=== PATIENT | male | born 1935 | race Caucasian/White ===

== ENCOUNTER 2017-10-04 07:30 | Day surgery (SDC) | payer MEDICARE, OTHER ==
--- NOTE | 2017-10-03 14:46 | PCM.PREANE ---
Preanesthetic Assessment - Anesthesia/Transfusion/Family Hx Anesthesia History: Prior Anesthesia Without Reaction Family History of Anesthesia Reaction: No Transfusion History: No Prior Transfusion(s) Intubation History: Unknown - Review of Systems General: No Symptoms Pulmonary: No Symptoms (quit smoking in 2003) Cardiovascular: No Symptoms (History of A-fibrillation/patient states he was told he had a [place] in the past which was silent), Palpitations, Dyspnea on Exertion (climbing stairs), Edema (history of lower extremity), Lightheadedness (with postural changes) Gastrointestinal: No Symptoms (gerd/History of hiatal hernia/ history of goblet cell metaplasia 2007), Constipation, Difficulty Swallowing (occasionally), Vomiting Neurological: Dizziness, Numbness (bilateral legs), Seizure (No CVA but last seizure: greater than 10 years.) Other: Reports: Diabetes (diet controlled), Thyroid Problems (hypothyroid), Sinus Problem (seasonal rhinitis), Neck Pain (occasional), Depression - Physical Assessment NPO Status Date: 10/03/17 NPO Status Time: 19:00 Pulse: 68 O2 Sat by Pulse Oximetry: 96 Respiratory Rate: 16 Blood Pressure: 143/94 Temperature: 36.4 C Height: 1.65 m Weight: 82.1 kg ASA Class: 3 Mental Status: Alert & Oriented x3 Airway Class: Mallampati = 3 Dentition: Reports: Dentures (upper) Thyro-Mental Finger Breadths: 3 Mouth Opening Finger Breadths: 3 ROM/Head Extension: Full Lungs: Clear to Auscultation, Normal Respiratory Effort, Decreased Breath Sounds Cardiovascular: Regular Rate, Regular Rhythm, No Murmurs - Lab Values: All lab values reviewed and noted and within acceptable ranges to proceed with scheduled procedure. - Imaging/EKG Impressions: EKG: SR prolonged ADRIEL, old inferior infarct Echocardiogram: EF 60-65% Negative stress test: 09/28/2017 Carotid doppler: no evidence to suggest significant stenosis - Allergies Allergies/Adverse Reactions: Allergies Allergy/AdvReac Type Severity Reaction Status Date / Time alendronate sodium Allergy Cannot Verified 10/03/17 11:32 [From Fosamax] Remember - Anesthesia Plan Pre-Op Medication Ordered: None - Acknowledgements Anesthesia Type Planned: MAC Pt an Appropriate Candidate for the Planned Anesthesia: Yes Alternatives and Risks of Anesthesia Discussed w Pt/Guardian: Yes Pt/Guardian Understands and Agrees with Anesthesia Plan: Yes PreAnesthesia Questionnaire HEENT History: Reports: Cataract, Impaired Vision, Other (See Below) Other HEENT History: wears glasses, hearing aids, dentures Cardiovascular History: Reports: Afib, Hypertension Respiratory History: Reports: SOB Gastrointestinal History: Reports: Chronic Constipation, GERD, Helicobacter Pylori, Other (See Below) Other Gastrointestinal History: gastric ulcer, upper abdominal pain, dysphagia, esophageal spasm, gastroparesis Genitourinary History: Reports: Other (See Below) Other Genitourinary History: renal mass 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 Musculoskeletal History: Reports: Other (See Below) Other Musculoskeletal History: right arm elbow pain, Neurological History: Reports: Seizure Psychiatric History: Reports: None Endocrine/Metabolic History: Reports: Diabetes, Type II, Hypothyroidism Hematologic History: Reports: None Immunologic History: Reports: None Oncologic (Cancer) History: Reports: None Dermatologic History: Reports: Other (See Below) Other Dermatologic History: onchomycosis - Past Surgical History Head Surgeries/Procedures: Reports: None HEENT Surgical History: Reports: Cataract Surgery, Naso-Sinus Surgery, Tonsillectomy Cardiovascular Surgical History: Reports: None Respiratory Surgical History: Reports: None GI Surgical History: Reports: Colonoscopy, EGD, Hernia Repair/Other Female Surgical History: Reports: None Male Surgical History: Reports: None Endocrine Surgical History: Reports: None Neurological Surgical History: Reports: None Musculoskeletal Surgical History: Reports: Arthroscopic Knee Oncologic Surgical History: Reports: None - SUBSTANCE USE Smoking Status *Q: Former Smoker Recreational Drug Use History: No - HOME MEDS Home Medications: Home Meds Ascorbate Calcium [Vitamin C] 500 mg PO DAILY 10/03/17 [History] Aspirin [Halfprin] 81 mg PO DAILY 10/03/17 [History] Ca Carbonate/Vitamin D3/Vit K [Calcium + D Soft Chewable Tab] 1 tab PO DAILY [History] Gluc/Aj-Msm#2/C/D3/Franky/Born [Sdtmukoiod-Ctxysuccsyl-CVL] 1 tab PO DAILY 10/03 [History] Levothyroxine 25 mcg PO DAILY 10/03/17 [History] Lutein 6 mg PO DAILY 10/03/17 [History] Magnesium 200 mg PO DAILY 10/03/17 [History] Multivitamin [Daily Multiple Vitamin] 1 tab PO DAILY 10/03/17 [History] Oxybutynin 5 mg PO DAILY 10/03/17 [History] Phenytoin Sodium Extended [Dilantin] 100 mg PO QAM 10/03/17 [History] Phenytoin Sodium Extended [Dilantin] 200 mg PO QPM 10/03/17 [History] Tamsulosin HCl 0.4 mg PO DAILY 10/03/17 [History] Ubidecarenone [Coq-10] 100 mg PO DAILY 10/03/17 [History] - CURRENT (IN HOUSE) MEDS Current Meds: Current Medications Lactated Ringer's (Ringers, Lactated) 1,000 mls @ 125 mls/hr IV ASDIRECTED TORY Stop: 10/04/17 23:00 Lidocaine/Sodium Bicarbonate (Buffered Lidocaine 1% In Ns 8.4%) 0.25 ml IDERM ONETIME PRN PRN Reason: Prior to IV Start Stop: 10/04/17 18:00 Sodium Chloride (Saline Flush) 10 ml FLUSH ASDIRECTED PRN PRN Reason: Keep Vein Open Stop: 10/04/17 18:00
[~2017-10-04 07:30] MED LIST: Lactated Ringers 1,000 ML IV SCH; Lidocaine 1% 0 ML ONE; Lidocaine 1%/Sod Bicarbonate in NS 8.4% 1 ML Syringe IDERM PRN; Propofol 200 MG/20 ML SDV ONE; Sodium Chloride 0.9% 10 ML Syringe FLUSH PRN; fentaNYL 100 MCG/2 ML SDV ONE
--- NOTE | 2017-10-04 09:14 | PCM48HPAN ---
Post Anesthesia Note - EVALUATION WITHIN 48HRS OF ANESTHETIC Vital Signs in Normal Range: Yes Patient Participated in Evaluation: Yes Respiratory Function Stable: Yes Airway Patent: Yes Cardiovascular Function Stable: Yes Hydration Status Stable: Yes Pain Control Satisfactory: Yes Nausea and Vomiting Control Satisfactory: Yes Mental Status Recovered: Yes
--- NOTE | 2017-10-04 09:31 | PCM.OPNOTE ---
- General Post-Op/Procedure Note Date of Surgery/Procedure: 10/04/17 Operative Procedure(s): EGD Findings: Hiatal hernia with LA grade A esophagitis,mild atrophic gastritis, otherwise negative EGD Pre Op Diagnosis: GERD and dysphagia Post-Op Diagnosis: Same Anesthesia Technique: JAMI Primary Surgeon: Randal Patel Anesthesia Provider: Melissa Le Complications: None Condition: Good
--- NOTE | 2017-10-04 10:29 | OR ---
DATE OF OPERATION: 10/04/2017 SURGEON: Randal Patel MD OPERATION PERFORMED: Esophagogastroduodenoscopy. ANESTHESIA: MAC. INDICATIONS: This 81-year-old, who has a known hiatal hernia. He has had problems with burning as well as dysphagia. He had 1 biopsy in the past, which showed a focal goblet cell metaplasia. There was no mention of a significant Swann's. He is not taking his medications on a daily basis. Followup EGD is recommended. DESCRIPTION OF PROCEDURE: The patient was brought to the surgical area. MAC anesthesia was given. He understands the risks and benefits of the procedure and is agreeable. Appropriate time-out was instituted. He was turned in the left lateral decubitus position. Scope was advanced easily through the cricopharyngeus and down into the esophagus. The Z-line was at 36 cm. I do not see any significant evidence of Swann's. The diaphragm was at 40 cm. When we initially went through this, there was some bleeding right at the Z-line and I think this is probably just related to some esophagitis. Things were wide open. I saw no evidence of a Schatzki's ring or stricture. Scope was advanced easily down into the stomach. He has mild atrophic gastritis. Scope was advanced through a very normal pylorus. I do not see gastritis. The scope was advanced into the second and third portion of the duodenum, which were normal. I see no ulcers. The scope was brought back into the stomach and on retroflexion, the type 1 sliding hiatal hernia was nicely visualized. The Z-line at 36 cm did show some mild bleeding, but nothing here that needed to be biopsied or dilated. I see no evidence of Swann's. Scope was then removed. Pictures were taken. IMPRESSION: 1. Gastroesophageal reflux disease with 4 cm hiatal hernia and mild esophagitis. 2. Mild atrophic gastritis. He tolerated the procedure very well. PREOPERATIVE DIAGNOSIS: POSTOPERATIVE DIAGNOSIS: ESTIMATED BLOOD LOSS: MMGERONIMO /[id number]
== END 2017-10-04 09:50 | disposition home or self-care (01) ==
LOC: JD.SDS 07:30
PROVIDERS: ATTEND Surgery
DX: K29.40 Chronic atrophic gastritis without bleeding (principal); K21.0 Gastro-esophageal reflux disease with esophagitis; K44.9 Diaphragmatic hernia without obstruction or gangrene; E13.49 Other specified diabetes mellitus with other diabetic neurological complication; E03.4 Atrophy of thyroid (acquired); Z88.8 Allergy status to other drugs, medicaments and biological substances; Z79.82 Long term (current) use of aspirin; Z79.899 Other long term (current) drug therapy; Z87.891 Personal history of nicotine dependence
CPT/HCPCS: 43235; J3010; J7120; J2704

== ENCOUNTER 2017-11-09 07:50 | Day surgery (SDC) | payer MEDICARE, OTHER ==
[~2017-11-09 07:50] MED LIST changes: -Lidocaine 1% 0 ML ONE; -Propofol 200 MG/20 ML SDV ONE; -fentaNYL 100 MCG/2 ML SDV ONE
[2017-11-09] MEDS ORDERED: Propofol 200 MG/20 ML SDV ONE (09:08)
[2017-11-09] MEDS ORDERED: Lidocaine 1% 4 ML ONE (09:08)
[2017-11-09] MEDS ORDERED: fentaNYL 100 MCG/2 ML SDV ONE (09:08)
--- NOTE | 2017-11-09 10:06 | PCM.PREANE ---
Preanesthetic Assessment - Anesthesia/Transfusion/Family Hx Anesthesia History: Prior Anesthesia Without Reaction Family History of Anesthesia Reaction: No Transfusion History: No Prior Transfusion(s) Intubation History: Unknown - Review of Systems General: No Symptoms Pulmonary: No Symptoms Cardiovascular: No Symptoms, Dyspnea on Exertion (When he is walking up more than a flight of steps. No chest pain. Negative stress test earlier this month. ) Gastrointestinal: No Symptoms, Other (GERD/Gastroparesis/Hiatal Hernia) Neurological: Pre-Existing Deficit (Neuropathy feet), Seizure (Has not had a seizure in years. On Dilantin.) Other: Reports: Diabetes, Thyroid Problems - Physical Assessment NPO Status Date: 11/08/17 NPO Status Time: 19:00 O2 Sat by Pulse Oximetry: 95 Respiratory Rate: 20 Vital Signs: Last Vital Signs Temp 36.8 C 11/09/17 08:00 Pulse 65 11/09/17 08:00 Resp 20 11/09/17 08:00 BP 131/71 11/09/17 08:00 Pulse Ox 95 11/09/17 08:00 Height: 1.65 m Weight: 79.832 kg ASA Class: 2 Mental Status: Alert & Oriented x3 Airway Class: Mallampati = 2 Dentition: Reports: Dentures (Upper. Prefers to leave them in for the procedure. ) Thyro-Mental Finger Breadths: 3 Mouth Opening Finger Breadths: 3 ROM/Head Extension: Full Lungs: Clear to Auscultation, Normal Respiratory Effort Cardiovascular: Regular Rate, Regular Rhythm - Lab Values: Laboratory Last Values POC Glucose 102 mg/dL (83-110) 11/09/17 08:24 - Allergies Allergies/Adverse Reactions: Allergies Allergy/AdvReac Type Severity Reaction Status Date / Time alendronate sodium Allergy Rash Verified 11/09/17 08:57 [From Fosamax] - Acknowledgements Anesthesia Type Planned: MAC Pt an Appropriate Candidate for the Planned Anesthesia: Yes Alternatives and Risks of Anesthesia Discussed w Pt/Guardian: Yes Pt/Guardian Understands and Agrees with Anesthesia Plan: Yes PreAnesthesia Questionnaire HEENT History: Reports: Cataract Other HEENT History: wears glasses, hearing aids, dentures Cardiovascular History: Reports: Afib Respiratory History: Reports: SOB Other Respiratory History: Dyspnea on exertion Gastrointestinal History: Reports: Gastritis, GERD, Hemorrhoids, Helicobacter Pylori, Other (See Below) Other Gastrointestinal History: Umbilical hernia, hiatal hernia, esophagitis, dysphagia, esophageal spasm, gastroparesis Genitourinary History: Reports: Other (See Below) Other Genitourinary History: Renal mass 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 Musculoskeletal History: Reports: None Other Musculoskeletal History: right arm elbow pain, Neurological History: Reports: Neuropathy, Peripheral, Seizure Other Neuro History: Dizziness Psychiatric History: Reports: None Endocrine/Metabolic History: Reports: Diabetes, Type II, Hypothyroidism Hematologic History: Reports: None Immunologic History: Reports: None Oncologic (Cancer) History: Reports: Other (See Below) Dermatologic History: Reports: Other (See Below) Other Dermatologic History: Onychomycosis - Infectious Disease History Infectious Disease History: Reports: None - Past Surgical History Head Surgeries/Procedures: Reports: None HEENT Surgical History: Reports: Tonsillectomy Cardiovascular Surgical History: Reports: None Respiratory Surgical History: Reports: None GI Surgical History: Reports: Colonoscopy, EGD Male Surgical History: Reports: None Endocrine Surgical History: Reports: None Neurological Surgical History: Reports: None Musculoskeletal Surgical History: Other Musculoskeletal Surgeries/Procedures:: Left knee arthroscopy Oncologic Surgical History: Reports: None Dermatological Surgical History: Reports: None - SUBSTANCE USE Smoking Status *Q: Former Smoker Tobacco Use Within Last Twelve Months: No Second Hand Smoke Exposure: No Recreational Drug Use History: No - HOME MEDS Home Medications: Home Meds Ascorbate Calcium [Vitamin C] 500 mg PO DAILY 10/03/17 [History] Aspirin [Halfprin] 81 mg PO BEDTIME 10/03/17 [History] Ca Carbonate/Vitamin D3/Vit K [Calcium + D Soft Chewable Tab] 1 tab PO DAILY [History] Gluc/Aj-Msm#2/C/D3/Franky/Born [Icgbxtnoes-Rvztpjlpzkb-VIR] 1 tab PO DAILY 10/03 [History] Levothyroxine 25 mcg PO DAILY 10/03/17 [History] Lutein 6 mg PO DAILY 10/03/17 [History] Magnesium 200 mg PO DAILY 10/03/17 [History] Multivitamin [Daily Multiple Vitamin] 1 tab PO DAILY 10/03/17 [History] Oxybutynin 5 mg PO DAILY 10/03/17 [History] Phenytoin Sodium Extended [Dilantin] 100 mg PO QAM 10/03/17 [History] Phenytoin Sodium Extended [Dilantin] 200 mg PO QPM 10/03/17 [History] Tamsulosin HCl 0.4 mg PO DAILY 10/03/17 [History] Ubidecarenone [Coq-10] 100 mg PO DAILY 10/03/17 [History] Omeprazole Magnesium [Prilosec Otc] 40 mg PO DAILY 11/08/17 [History] Phytonadione [Vitamin K] 100 mcg PO DAILY 11/08/17 [History] - CURRENT (IN HOUSE) MEDS Current Meds: Current Medications Lactated Ringer's (Ringers, Lactated) 1,000 mls @ 125 mls/hr IV ASDIRECTED TORY Last Admin: 11/09/17 08:25 Dose: 125 mls/hr Lidocaine/Sodium Bicarbonate (Buffered Lidocaine 1% In Ns 8.4%) 0.25 ml IDERM ONETIME PRN PRN Reason: Prior to IV Start Last Admin: 11/09/17 08:24 Dose: 0.25 ml Sodium Chloride (Saline Flush) 10 ml FLUSH ASDIRECTED PRN PRN Reason: Keep Vein Open Discontinued Medications Fentanyl (Sublimaze) Confirm Administered Dose 100 mcg .ROUTE .STK-MED ONE Stop: 11/09/17 09:09 Lidocaine HCl (Xylocaine-Mpf 1%) Confirm Administered Dose 4 mls @ as directed .ROUTE .STK-MED ONE Stop: 11/09/17 09:09 Propofol (Diprivan 20 Ml) Confirm Administered Dose 200 mg .ROUTE .STK-MED ONE Stop: 11/09/17 09:09
--- NOTE | 2017-11-09 10:49 | PCM.OPNOTE ---
- General Post-Op/Procedure Note Date of Surgery/Procedure: 11/09/17 Operative Procedure(s): colonoscopy to cecum Pre Op Diagnosis: rectal bleeding Post-Op Diagnosis: Same Anesthesia Technique: MAC Primary Surgeon: Minh Vincent EBL in mLs: 0 Complications: None Condition: Good
--- NOTE | 2017-11-09 10:52 | PCM48HPAN ---
Post Anesthesia Note - EVALUATION WITHIN 48HRS OF ANESTHETIC Vital Signs in Normal Range: Yes Patient Participated in Evaluation: Yes Respiratory Function Stable: Yes Airway Patent: Yes Cardiovascular Function Stable: Yes Hydration Status Stable: Yes Pain Control Satisfactory: Yes Nausea and Vomiting Control Satisfactory: Yes Mental Status Recovered: Yes Pulse Rate: 74 SaO2: 91 Resp Rate: 20 Temperature: 97.5 F (5) Blood Pressure: 124/74
--- NOTE | 2017-11-09 12:07 | OR ---
DATE OF OPERATION: 11/09/2017 SURGEON: Minh Vincent MD PREOPERATIVE DIAGNOSIS: Rectal bleeding. POSTOPERATIVE DIAGNOSIS: Rectal bleeding. OPERATION PERFORMED: Colonoscopy to cecum. FINDINGS: Moderately severe diverticulosis, sigmoid colon. There are no angiodysplasias, neoplasias, large tumor masses, ulcerations, or notable hemorrhoids. ANESTHESIA: Procedure is done under IV sedation. DESCRIPTION OF PROCEDURE: The patient was taken to the endoscopy room, placed in a supine position, connected to monitoring equipment, given IV sedation. The perianal area was evaluated. Did not show any external hemorrhoids. Rectal exam showed good sphincter tone. A video Olympus colonoscope was then introduced into the rectum and threaded up without problem to the cecum, where the appendicular orifice was noted and the ileocecal valve identified. Prep was excellent, [place] Cleansing score grade A throughout the colon. The scope was slowly withdrawn showing the cecum, ascending colon, transverse colon, descending colon, sigmoid colon, and rectum. Retroflexed view was done. The patient tolerated the procedure, sent to recovery room in a stable condition, will be followed up as needed in the clinic. ESTIMATED BLOOD LOSS: MMODAL /[id number]
== END 2017-11-09 11:40 | disposition home or self-care (01) ==
LOC: JD.SDS 07:50
PROVIDERS: ATTEND Surgery
DX: K62.5 Hemorrhage of anus and rectum (principal); K21.9 Gastro-esophageal reflux disease without esophagitis; K57.30 Diverticulosis of large intestine without perforation or abscess without bleeding; K59.00 Constipation, unspecified; K31.84 Gastroparesis; E03.4 Atrophy of thyroid (acquired); E78.1 Pure hyperglyceridemia; E11.51 Type 2 diabetes mellitus with diabetic peripheral angiopathy without gangrene; E11.49 Type 2 diabetes mellitus with other diabetic neurological complication; Z79.82 Long term (current) use of aspirin; Z79.899 Other long term (current) drug therapy; Z98.890 Other specified postprocedural states; Z88.8 Allergy status to other drugs, medicaments and biological substances; Z87.891 Personal history of nicotine dependence
CPT/HCPCS: 45378; 82962; J2001; J3010; J7120; J2704

== ENCOUNTER 2019-11-20 06:56 | Day surgery (SDC) | payer MEDICARE, OTHER ==
--- NOTE | 2019-11-20 07:26 | PCM.PREANE ---
Preanesthetic Assessment - Anesthesia/Transfusion/Family Hx Anesthesia History: Prior Anesthesia Without Reaction Family History of Anesthesia Reaction: No Transfusion History: No Prior Transfusion(s) Intubation History: Unknown - Review of Systems General: No Symptoms Pulmonary: Shortness of Breath (with climbing stairs), Other (malignant neoplasm right lung, ) Cardiovascular: Other (hx of afib) Gastrointestinal: Abdominal Pain, Other (GERD, gastroparesis, states he throws up about once a week) Neurological: Seizure (cant remember last time he had a seizure) Other: Reports: Diabetes (no meds) - Physical Assessment NPO Status Date: 11/19/19 NPO Status Time: 22:00 Weight: 83.007 kg ASA Class: 3 Mental Status: Alert & Oriented x3 Dentition: Reports: Dentures (upper) Thyro-Mental Finger Breadths: 3 Mouth Opening Finger Breadths: 3 ROM/Head Extension: Full Lungs: Clear to Auscultation, Normal Respiratory Effort Cardiovascular: Regular Rate, Regular Rhythm - Lab Values: Laboratory Last Values SARS Virus RNA (PCR) Negative (NEGATIVE) 11/19/19 11:00 - Allergies Allergies/Adverse Reactions: Allergies Allergy/AdvReac Type Severity Reaction Status Date / Time alendronate sodium Allergy Rash Verified 11/09/17 08:57 [From Fosamax] - Blood Blood Available: No Product(s) Available: None - Anesthesia Plan Pre-Op Medication Ordered: None - Acknowledgements Anesthesia Type Planned: MAC Pt an Appropriate Candidate for the Planned Anesthesia: Yes Alternatives and Risks of Anesthesia Discussed w Pt/Guardian: Yes Pt/Guardian Understands and Agrees with Anesthesia Plan: Yes PreAnesthesia Questionnaire HEENT History: Reports: Cataract Other HEENT History: wears glasses, hearing aids, dentures Cardiovascular History: Reports: Afib Respiratory History: Reports: SOB Other Respiratory History: Dyspnea on exertion Gastrointestinal History: Reports: Gastritis, GERD, Hemorrhoids, Helicobacter Pylori, Other (See Below) Other Gastrointestinal History: Umbilical hernia, hiatal hernia, esophagitis, dysphagia, esophageal spasm, gastroparesis Genitourinary History: Reports: Other (See Below) Other Genitourinary History: Renal mass [employer]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 Musculoskeletal History: Reports: None Other Musculoskeletal History: right arm elbow pain, Neurological History: Reports: Neuropathy, Peripheral, Seizure Other Neuro History: Dizziness Psychiatric History: Reports: None Endocrine/Metabolic History: Reports: Diabetes, Type II, Hypothyroidism Hematologic History: Reports: None Immunologic History: Reports: None Oncologic (Cancer) History: Reports: Other (See Below) Dermatologic History: Reports: Other (See Below) Other Dermatologic History: Onychomycosis - Infectious Disease History Infectious Disease History: Reports: None - Past Surgical History Head Surgeries/Procedures: Reports: None HEENT Surgical History: Reports: Tonsillectomy Cardiovascular Surgical History: Reports: None Respiratory Surgical History: Reports: None GI Surgical History: Reports: Colonoscopy, EGD Male Surgical History: Reports: None Endocrine Surgical History: Reports: None Neurological Surgical History: Reports: None Musculoskeletal Surgical History: Other Musculoskeletal Surgeries/Procedures:: Left knee arthroscopy Oncologic Surgical History: Reports: None Dermatological Surgical History: Reports: None - HOME MEDS Home Medications: Home Meds Ascorbate Calcium [Vitamin C] 500 mg PO DAILY 10/03/17 [History] Aspirin [Halfprin] 81 mg PO BEDTIME 10/03/17 [History] Calcium Carb/Vitamin D3/Vit K1 [Calcium + D Soft Chewable Tab] 1 tab PO DAILY [History] Glucosam/Chond-MSM 2/C/D3/Franky [Yprbfxhyuk-Qldnkqgiuoo-DWL] 1 tab PO DAILY 10/03 [History] Levothyroxine 25 mcg PO DAILY 10/03/17 [History] Lutein 6 mg PO DAILY 10/03/17 [History] Magnesium 200 mg PO DAILY 10/03/17 [History] Multivitamin [Daily Multiple Vitamin] 1 tab PO DAILY 10/03/17 [History] Oxybutynin 5 mg PO DAILY 10/03/17 [History] Phenytoin Sodium Extended [Dilantin] 100 mg PO QAM 10/03/17 [History] Phenytoin Sodium Extended [Dilantin] 200 mg PO QPM 10/03/17 [History] Tamsulosin HCl 0.4 mg PO DAILY 10/03/17 [History] Ubidecarenone [Coq-10] 100 mg PO DAILY 10/03/17 [History] Omeprazole Magnesium [Prilosec Otc] 40 mg PO DAILY 11/08/17 [History] Phytonadione [Vitamin K] 100 mcg PO DAILY 11/08/17 [History] - CURRENT (IN HOUSE) MEDS Current Meds: Current Medications Lactated Ringer's (Ringers, Lactated) 1,000 mls @ 125 mls/hr IV ASDIRECTED TORY Stop: 11/20/19 23:00 Lidocaine/Sodium Bicarbonate (Buffered Lidocaine 1% In Ns 8.4%) 0.25 ml IDERM ONETIME PRN PRN Reason: Prior to IV Start Stop: 11/20/19 18:00 Sodium Chloride (Saline Flush) 10 ml FLUSH ASDIRECTED PRN PRN Reason: Keep Vein Open Stop: 11/20/19 18:00
[2019-11-20] MEDS ORDERED: Propofol 200 MG/20 ML SDV ONE (07:38)
--- NOTE | 2019-11-20 08:32 | PCM48HPAN ---
Post Anesthesia Note - EVALUATION WITHIN 48HRS OF ANESTHETIC Vital Signs in Normal Range: Yes Patient Participated in Evaluation: Yes Respiratory Function Stable: Yes Airway Patent: Yes Cardiovascular Function Stable: Yes Hydration Status Stable: Yes Pain Control Satisfactory: Yes Nausea and Vomiting Control Satisfactory: Yes Mental Status Recovered: Yes Vital Signs: Last Vital Signs Temp 36.9 C 11/20/19 07:00 Pulse 77 11/20/19 07:00 Resp 16 11/20/19 07:00 BP 138/68 11/20/19 07:00 Pulse Ox 95 11/20/19 07:00
--- NOTE | 2019-11-20 08:33 | PCM.OPNOTE ---
- General Post-Op/Procedure Note Date of Surgery/Procedure: 11/20/19 Operative Procedure(s): EGD Findings: 1. Tortuous esophagus 2. Sliding hiatal hernia 4cm 3. Schatzki ring- widely patent 4. Gastritis 5. Bile reflux 6. Gastric polypoid tissue 7. Duodenitis Pre Op Diagnosis: Dysphagia, vomiting, heartburn Post-Op Diagnosis: same Anesthesia Technique: MAC Primary Surgeon: Shanelle Moore Anesthesia Provider: Macie Martin Pathology: 1. Duodenal biopsy 2. Antrum biopsy 3. Gastric polyp biopsy Fluid Replacement, Intraop: 700 Output, Urine Amount: 0 EBL in mLs: 0 Complications: none apparent Condition: Good
--- NOTE | 2019-11-20 08:34 | PCM.PRNOTE ---
- Free Text/Narrative Note: Operative Report Date of procedure: November 20, 2019 Preoperative diagnosis: Dysphagia, vomiting, heartburn Postoperative diagnosis: Same Surgeon: Shanelle Moore M.D. Procedure: EGD with biopsy Anesthesia: MAC Event Manager: Macie Martin CRNA IV fluids: 700 mL Estimated blood loss: 0 mL Specimens: 1. Tortuous esophagus 2. Sliding hiatal hernia 4cm 3. Schatzki ring- widely patent 4. Gastritis 5. Bile reflux 6. Gastric polypoid tissue 7. Duodenitis Specimens: 1. Duodenal biopsy 2. Gastric antrum 3. Gastric polyp biopsy Indication: The patient is an 83-year-old gentleman who presented with complaints of heartburn, frequent vomiting and dysphagia. TThe patient was consented for an EGD with possible balloon dilation intervention. Risk of bleeding and perforation were discussed. The patient's consent was obtained Description of the procedure: The patient was taken to the endoscopy suite and placed on hemodynamic monitoring. The nurse field software engineer induced MAC anesthesia. A bite block was placed. The patient was positioned in the left lateral decubitus position. A timeout was performed. The endoscope was gently placed into the mouth to the back of the pharynx and introduced into the esophagus. The scope was gently advanced under direct visualization down to the level of the lower esophageal sphincter. The stomach was then entered. There was bilious fluid pooling in the stomach which was suctioned. Normal rugal folds were noted. The scope was advanced into the antrum. We noted erythematous patches consistent with gastritis versus gastropathy. The stomach mucosa also had the appearance of intestinal metaplasia. The pylorus was then entered and the first and second portion of the duodenum was inspected. We did note some friability and erythema in the duodenal bulb. Biopsies were taken in this area using cold biopsy forceps. There were no ulcerations in the duodenum. The scope was withdrawn into the antrum and biopsies were taken with a cold biopsy forceps for H. pylori testing. The scope was then retroflexed in the cardia and fundus were investigated. A sliding hiatal hernia was noted. The mucosa of the greater curvature near the antrum had a polypoid, frond-like appearance. Biopsies were taken in this area using a cold biopsy forceps. There was also some thinning of the mucosa that looked consistent with healing ulceration. No discrete ulcer was noted no other abnormalities were noted. The scope was then withdrawn while inspecting the esophagus. The Z line was noted at approximately 37 cm. The patient had a 4 cm sliding hiatal hernia measured. There was a Schatzki ring present at the level of the Z line, however , it was widely patent (at least 18 mm). No intervention was performed. There was no esophagitis. The procedure was terminated. the patient tolerated the procedure well without any evidence of complications. Shanelle Moore MD General Surgery
== END 2019-11-20 09:25 | disposition home or self-care (01) ==
LOC: JD.SDS 06:56
PROVIDERS: ATTEND Surgery
DX: K29.50 Unspecified chronic gastritis without bleeding (principal); K31.89 Other diseases of stomach and duodenum; K44.9 Diaphragmatic hernia without obstruction or gangrene; K22.2 Esophageal obstruction; K21.9 Gastro-esophageal reflux disease without esophagitis; K31.7 Polyp of stomach and duodenum; K29.80 Duodenitis without bleeding; Z11.59 Encounter for screening for other viral diseases; E11.9 Type 2 diabetes mellitus without complications; Z87.19 Personal history of other diseases of the digestive system; Z87.891 Personal history of nicotine dependence; Z88.8 Allergy status to other drugs, medicaments and biological substances; Z98.890 Other specified postprocedural states; Z79.899 Other long term (current) drug therapy
CPT/HCPCS: 43239; 82962; J2704; J7120; U0002

== ENCOUNTER 2020-04-20 07:14 | Day surgery (SDC) | payer MEDICARE, OTHER ==
[~2020-04-20 07:14] MED LIST changes: +Scopolamine 1.5 MG Transdermal Patch TRDERM PRN
[2020-04-20] MEDS ORDERED: fentaNYL 250 MCG/5 ML SDV ONE (07:18)
[2020-04-20] MEDS ORDERED: Propofol 200 MG/20 ML SDV ONE (07:18)
[2020-04-20] MEDS ORDERED: Lidocaine 1% 4 ML ONE (07:19)
[2020-04-20] MEDS ORDERED: Rocuronium 50 MG/5 ML Vial ONE (07:21)
[2020-04-20] MEDS ORDERED: Ondansetron 4 MG/2 ML SDV ONE (07:21)
[2020-04-20] MEDS ORDERED: Dexamethasone 4 MG/ML 5 ML MDV ONE (07:21)
[2020-04-20] MEDS ORDERED: Lidocaine 1% with EPINEPHrine 1:100,000 20 ML MDV ONE (07:28)
[2020-04-20] MEDS ORDERED: Scopolamine 1.5 MG Transdermal Patch TOP SCH (07:28)
[2020-04-20] MEDS ORDERED: fentaNYL 100 MCG/2 ML SDV IVPUSH PRN (07:35)
[2020-04-20] MEDS ORDERED: Ondansetron 4 MG/2 ML SDV IVPUSH PRN (07:35)
[2020-04-20] MEDS ORDERED: diphenhydrAMINE 50 MG/ML SDV IVPUSH PRN (07:35)
--- NOTE | 2020-04-20 07:41 | PCM.PREANE ---
Preanesthetic Assessment - Procedure Proposed Procedure: open umbilical hernia repair with mesh - Anesthesia/Transfusion/Family Hx Anesthesia History: Prior Anesthesia Without Reaction Family History of Anesthesia Reaction: No Transfusion History: No Prior Transfusion(s) Intubation History: Unknown - Review of Systems General: No Symptoms Pulmonary: No Symptoms Cardiovascular: No Symptoms Gastrointestinal: Nausea, Vomiting, Other (GERD ) Neurological: Seizure, Tingling (left hand ) - Physical Assessment NPO Status Date: 04/20/20 NPO Status Time: 20:00 Vital Signs: Last Vital Signs Temp 36.6 C 04/20/20 07:25 Pulse 80 04/20/20 07:25 Resp 16 04/20/20 07:25 BP 142/80 H 04/20/20 07:25 Pulse Ox 96 04/20/20 07:25 Height: 1.65 m Weight: 79.832 kg ASA Class: 3 Mental Status: Alert & Oriented x3 Airway Class: Mallampati = 3 Dentition: Reports: Dentures (upper ) Thyro-Mental Finger Breadths: 3 Mouth Opening Finger Breadths: 4 ROM/Head Extension: Limited/Partial Lungs: Clear to Auscultation, Normal Respiratory Effort Cardiovascular: Regular Rate, Regular Rhythm - Lab Values: Laboratory Last Values SARS-CoV-2 RNA ([facility]IS[facility]) Cancelled 03/27/20 15:33 - Allergies Allergies/Adverse Reactions: Allergies Allergy/AdvReac Type Severity Reaction Status Date / Time alendronate sodium Allergy Rash Verified 11/09/17 08:57 [From Fosamax] - Anesthesia Plan Pre-Op Medication Ordered: Antacids - Acknowledgements Anesthesia Type Planned: General Anesthesia Pt an Appropriate Candidate for the Planned Anesthesia: Yes Alternatives and Risks of Anesthesia Discussed w Pt/Guardian: Yes Pt/Guardian Understands and Agrees with Anesthesia Plan: Yes PreAnesthesia Questionnaire HEENT History: Reports: Cataract Other HEENT History: wears glasses, hearing aids, dentures Cardiovascular History: Reports: Afib Respiratory History: Reports: SOB Other Respiratory History: Dyspnea on exertion Gastrointestinal History: Reports: Gastritis, GERD, Hemorrhoids, Helicobacter Pylori, Other (See Below) Other Gastrointestinal History: Umbilical hernia, hiatal hernia, esophagitis, dysphagia, esophageal spasm, gastroparesis Genitourinary History: Reports: Other (See Below) Other Genitourinary History: Renal mass UNDERGROUND REPAIRER History: Reports: None Musculoskeletal History: Reports: None Other Musculoskeletal History: right arm elbow pain, Neurological History: Reports: Neuropathy, Peripheral, Seizure Other Neuro History: Dizziness Psychiatric History: Reports: None Endocrine/Metabolic History: Reports: Diabetes, Type II, Hypothyroidism Hematologic History: Reports: None Immunologic History: Reports: None Oncologic (Cancer) History: Reports: Other (See Below) Dermatologic History: Reports: Other (See Below) Other Dermatologic History: Onychomycosis - Infectious Disease History Infectious Disease History: Reports: None - Past Surgical History Head Surgeries/Procedures: Reports: None HEENT Surgical History: Reports: Tonsillectomy Cardiovascular Surgical History: Reports: None Respiratory Surgical History: Reports: None Other Respiratory Surgeries/Procedures: 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 in [place] GI Surgical History: Reports: Colonoscopy, EGD Male Surgical History: Reports: None Endocrine Surgical History: Reports: None Neurological Surgical History: Reports: None Musculoskeletal Surgical History: Other Musculoskeletal Surgeries/Procedures:: Left knee arthroscopy Oncologic Surgical History: Reports: None Dermatological Surgical History: Reports: None - HOME MEDS Home Medications: Home Meds Ascorbate Calcium [Vitamin C] 500 mg PO DAILY 10/03/17 [History] Aspirin [Halfprin] 81 mg PO BEDTIME 10/03/17 [History] Calcium Carb/Vitamin D3/Vit K1 [Calcium + D Soft Chewable Tab] 1 tab PO DAILY 10/03/17 [History] Glucosam/Chond-MSM 2/C/D3/Franky [Paqqgyszec-Mgryoozhxrn-KMF] 1 tab PO DAILY 10/03/17 [History] Levothyroxine 25 mcg PO DAILY 10/03/17 [History] Lutein 6 mg PO DAILY 10/03/17 [History] Magnesium 200 mg PO DAILY 10/03/17 [History] Multivitamin [Daily Multiple Vitamin] 1 tab PO DAILY 10/03/17 [History] Oxybutynin 5 mg PO DAILY 10/03/17 [History] Phenytoin Sodium Extended [Dilantin] 200 mg PO QPM 10/03/17 [History] Tamsulosin HCl 0.4 mg PO DAILY 10/03/17 [History] Ubidecarenone [Coq-10] 100 mg PO DAILY 10/03/17 [History] Pantoprazole Sodium [Protonix] 40 mg PO DAILY #30 tablet. 11/20/19 [Rx] - CURRENT (IN HOUSE) MEDS Current Meds: Current Medications Lactated Ringer's (Ringers, Lactated) 1,000 mls @ 125 mls/hr IV ASDIRECTED TORY Stop: 04/20/20 23:00 Lidocaine/Sodium Bicarbonate (Buffered Lidocaine 1% In Ns 8.4%) 0.25 ml IDERM ONETIME PRN PRN Reason: Prior to IV Start Stop: 04/20/20 18:00 Scopolamine (Transderm-Scop) 1.5 mg TOP ONETIME TORY Stop: 04/20/20 12:00 Sodium Chloride (Saline Flush) 10 ml FLUSH ASDIRECTED PRN PRN Reason: Keep Vein Open Stop: 04/20/20 18:00 Discontinued Medications Dexamethasone (Dexamethasone) Confirm Administered Dose 20 mg .ROUTE .STK-MED ONE Stop: 04/20/20 07:22 Fentanyl (Sublimaze) Confirm Administered Dose 250 mcg .ROUTE .STK-MED ONE Stop: 04/20/20 07:19 Lactated Ringer's (Ringers, Lactated) 1,000 mls @ 125 mls/hr IV ASDIRECTED [facility] Stop: 03/30/20 23:00 Lidocaine HCl (Xylocaine-Mpf 1%) Confirm Administered Dose 4 mls @ as directed .ROUTE .STK-MED ONE Stop: 04/20/20 07:20 Lidocaine/Epinephrine (Xylocaine 1% With Epinephrine 1:100,000) Confirm Administered Dose 20 ml .ROUTE .STK-MED ONE Stop: 04/20/20 07:29 Lidocaine/Sodium Bicarbonate (Buffered Lidocaine 1% In Ns 8.4%) 0.25 ml IDERM ONETIME PRN PRN Reason: Prior to IV Start Stop: 03/30/20 18:00 Ondansetron HCl (Zofran) Confirm Administered Dose 4 mg .ROUTE .STK-MED ONE Stop: 04/20/20 07:22 Propofol (Diprivan 20 Ml) Confirm Administered Dose 200 mg .ROUTE .STK-MED ONE Stop: 04/20/20 07:19 Rocuronium [place] (Zemuron) Confirm Administered Dose 50 mg .ROUTE .STK-MED ONE Stop: 04/20/20 07:22 Scopolamine (Transderm-Scop) 1.5 mg TRDERM ONETIME PRN PRN Reason: PONV Stop: 03/30/20 18:00 Sodium Chloride (Saline Flush) 10 ml FLUSH ASDIRECTED PRN PRN Reason: Keep Vein Open Stop: 03/30/20 18:00
[2020-04-20] MEDS ORDERED: Citric Acid/Sodium Citrate Solution 30 ML Cup PO ONE (07:46)
[2020-04-20] MEDS ORDERED: Citric Acid/Sodium Citrate Solution 30 ML Cup ONE (08:02)
[2020-04-20] MEDS ORDERED: ceFAZolin 1 GM Vial ONE (08:39)
[2020-04-20] MEDS ORDERED: ePHEDrine 50 MG/ML SDV ONE (08:50)
[2020-04-20] MEDS ORDERED: Lactated Ringers 1,000 ML ONE (09:17)
[2020-04-20] MEDS ORDERED: Ketorolac 30 MG/ML SDV ONE (09:17)
--- NOTE | 2020-04-20 09:48 | PCM.POSTAN ---
POST ANESTHESIA ASSESSMENT - MENTAL STATUS Mental Status: Other (drowsy ) - VITAL SIGNS Vital Signs: Last Vital Signs Temp 36.6 C 04/20/20 07:25 Pulse 80 04/20/20 07:25 Resp 16 04/20/20 07:25 BP 142/80 H 04/20/20 07:25 Pulse Ox 96 04/20/20 07:25 - RESPIRATORY Respiratory Status: Respiratory Rate WNL, Airway Patent, O2 Saturation Stable - CARDIOVASCULAR CV Status: Blood Pressure Stable, Elevated Pulse Rate (from reversal ) - GASTROINTESTINAL GI Status: No Symptoms - PAIN Pain Score: 0 - POST OP HYDRATION Hydration Status: Adequate & Stable
--- NOTE | 2020-04-20 10:38 | OR ---
DATE OF OPERATION: 04/20/2020 SURGEON: Marcos Clayton MD PREOPERATIVE DIAGNOSIS: Symptomatic umbilical hernia. POSTOPERATIVE DIAGNOSIS: Symptomatic umbilical hernia. OPERATION PERFORMED: Open umbilical hernia repair without mesh. ESTIMATED BLOOD LOSS: 5 mL. ANESTHESIA: General endotracheal and local. Local anesthesia used was 1% lidocaine without epinephrine. COMPLICATIONS: None. INDICATION AND CONSENT: Mr. Ellis is an 84-year-old male who had umbilical hernia for many years. However, in the recent months, he has become more painful, especially with activities and therefore the patient presented to my clinic. I evaluated the patient and recommended operative repair. Discussed risks, benefits, and alternatives and all questions were answered. Informed consent was obtained. DESCRIPTION OF PROCEDURE: The patient was met in the preop area and he was doing fine. He was taken to the operating room. Preop antibiotics were given. The patient was padded appropriately and general anesthesia was induced and then the abdomen was exposed, hair clipped, prepped and draped in the usual sterile fashion. Formal time-out was performed prior to the start of the procedure. Began the procedure by injecting local anesthetic in the subcutaneous tissues. A supraumbilical incision just above the hernia was made with a #10 blade. The hernia was isolated from surrounding subcutaneous tissues all the way circumferentially. The hernia sac contained preperitoneal fat. However, there was omentum also that was easily bulging into the hernia. Once the hernia sac was isolated, it was released from the fascial edges and amputated. The hernia contents were placed back into the abdominal cavity. The surrounding preperitoneal fat was released from fascial edges and then the fascia was measured and found to be 1.2 cm in diameter. Because of the small size of the fascial defect, decision was made to close this primarily and avoid putting a mesh in the small hernia. #1 PDS was used to close the fascia in 2 ways, one was a mattress suture and then this was also buttressed by [id number] sutures. At the end, the hernia was well approximated. The umbilical button was recreated with 3-0 Vicryl stitch and then the skin was closed in layers, deeper layers were closed with 3-0 Vicryl and subcuticular stitches was reapproximated with 4-0 Monocryl and then Dermabond was applied. This marked the end of the procedure. At the end of the procedure, all instruments, sharps, and sponges were counted and found to be correct x2. The patient was awoken from general anesthesia, extubated, and taken to the PACU for further recovery. The patient will be allowed to go home today. The patient is to use over-the- counter NSAIDs for pain. If the pain is too much, then the patient will call for opioid prescriptions. CHRISTI /[id number]
--- NOTE | 2020-04-20 12:13 | PCM48HPAN ---
Post Anesthesia Note - EVALUATION WITHIN 48HRS OF ANESTHETIC Vital Signs in Normal Range: Yes Patient Participated in Evaluation: Yes Respiratory Function Stable: Yes Airway Patent: Yes Cardiovascular Function Stable: Yes Hydration Status Stable: Yes Pain Control Satisfactory: Yes Nausea and Vomiting Control Satisfactory: Yes Mental Status Recovered: Yes Vital Signs: Last Vital Signs Temp 36.9 C 04/20/20 09:39 Pulse 86 04/20/20 11:30 Resp 16 04/20/20 11:30 BP 116/67 04/20/20 11:30 Pulse Ox 96 04/20/20 11:30
== END 2020-04-20 12:40 | disposition home or self-care (01) ==
LOC: JD.SDS 07:14
PROVIDERS: ATTEND Surgery
DX: K42.9 Umbilical hernia without obstruction or gangrene (principal); E11.51 Type 2 diabetes mellitus with diabetic peripheral angiopathy without gangrene; I48.91 Unspecified atrial fibrillation; E11.49 Type 2 diabetes mellitus with other diabetic neurological complication; F17.210 Nicotine dependence, cigarettes, uncomplicated; E03.9 Hypothyroidism, unspecified; Z98.890 Other specified postprocedural states; Z79.899 Other long term (current) drug therapy; Z88.8 Allergy status to other drugs, medicaments and biological substances; Z79.890 Hormone replacement therapy
CPT/HCPCS: 49585; A9270; J0690; J1100; J1885; J2001; J2405; J2704; J2710; J3010; J7120; 00750; U0002

== ENCOUNTER 2021-04-08 16:13 | Inpatient (IN) | payer MEDICARE, OTHER ==
[2021-04-08] MEDS ORDERED: Sodium Chloride 0.9% 1,000 ML IV STA (17:19)
[2021-04-08] MEDS ORDERED: Pantoprazole 40 MG Vial IVPUSH ONE (17:19)
[2021-04-08] MEDS ORDERED: Ondansetron 4 MG/2 ML SDV IVPUSH ONE (17:19)
--- NOTE | 2021-04-08 17:40 | EDM.PDOC ---
ED HPI GENERAL MEDICAL PROBLEM - General Chief Complaint: Gastrointestinal Problem Stated Complaint: VOMITING BLOOD Time Seen by Provider: 04/08/21 17:01 Source of Information: Reports: Patient, RN Notes Reviewed History Limitations: Reports: No Limitations - History of Present Illness INITIAL COMMENTS - FREE TEXT/NARRATIVE: Patient is an 85-year-old male presenting to the emergency department with complaints of epigastric pain as well as hematemesis. He reports he ate dinner around 1 PM. Shortly after eating, he vomited up his dinner and immediately thereafter approximately 1 cup of donna red blood. He has had no further vomiting since that time. Continues to have some epigastric discomfort. He was on Protonix, however he stopped it 1 year ago as he did not feel it was doing anything. Denies any NSAID or alcohol use. He does take aspirin 81 mg each evening. Denies any chest pain or shortness of breath. He has no history of GI bleeds. Denies any recent dark stools. He had EGD completed in 2018 which showed hiatal hernia, GERD and gastritis. Primary care provider is Dr. Riley. Middle Epigastric Pain Score (Numeric/FACES): 8 - Related Data Allergies Allergy/AdvReac Type Severity Reaction Status Date / Time alendronate sodium Allergy Rash Verified 11/09/17 08:57 [From Fosamax] Home Meds: Home Meds Ascorbate Calcium [Vitamin C] 500 mg PO DAILY 10/03/17 [History] Aspirin [Halfprin] 81 mg PO BEDTIME 10/03/17 [History] Calcium Carb/Vitamin D3/Vit K1 [Calcium + D Soft Chewable Tab] 1 tab PO DAILY 10/03/17 [History] Glucosam/Chond-MSM 2/C/D3/Franky [Vlerjpctqk-Phsapnqkvdt-TGY] 1 tab PO DAILY 10/03/17 [History] Levothyroxine 25 mcg PO DAILY 10/03/17 [History] Lutein 6 mg PO DAILY 10/03/17 [History] Magnesium 200 mg PO DAILY 10/03/17 [History] Multivitamin [Daily Multiple Vitamin] 1 tab PO DAILY 10/03/17 [History] Oxybutynin 5 mg PO DAILY 10/03/17 [History] Phenytoin Sodium Extended [Dilantin] 200 mg PO QPM 10/03/17 [History] Tamsulosin HCl 0.4 mg PO DAILY 10/03/17 [History] Ubidecarenone [Coq-10] 100 mg PO DAILY 10/03/17 [History] Past Medical History HEENT History: Reports: Cataract Other HEENT History: wears glasses, hearing aids, dentures Cardiovascular History: Reports: Afib Respiratory History: Reports: SOB Other Respiratory History: Dyspnea on exertion Gastrointestinal History: Reports: Gastritis, GERD, Hemorrhoids, Helicobacter Pylori, Other (See Below) Other Gastrointestinal History: Umbilical hernia, hiatal hernia, esophagitis, dysphagia, esophageal spasm, gastroparesis Genitourinary History: Reports: Other (See Below) Other Genitourinary History: Renal mass [employer] History: Reports: None Musculoskeletal History: Reports: None Other Musculoskeletal History: right arm elbow pain, Neurological History: Reports: Neuropathy, Peripheral, Seizure Other Neuro History: Dizziness Psychiatric History: Reports: None Endocrine/Metabolic History: Reports: Diabetes, Type II, Hypothyroidism Hematologic History: Reports: None Immunologic History: Reports: None Oncologic (Cancer) History: Reports: Other (See Below) Dermatologic History: Reports: Other (See Below) Other Dermatologic History: Onychomycosis - Infectious Disease History Infectious Disease History: Reports: None - Past Surgical History Head Surgeries/Procedures: Reports: None HEENT Surgical History: Reports: Tonsillectomy Cardiovascular Surgical History: Reports: None Respiratory Surgical History: Reports: None Other Respiratory Surgeries/Procedures: 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 [place] [facility] Surgical History: Reports: Colonoscopy, EGD Male Surgical History: Reports: None Endocrine Surgical History: Reports: None Neurological Surgical History: Reports: None Other Musculoskeletal Surgeries/Procedures:: Left knee arthroscopy Oncologic Surgical History: Reports: None Dermatological Surgical History: Reports: None Social & Family History - Tobacco Use Tobacco Use Status *Q: Former Tobacco User Used Tobacco, but Quit: Yes Month/Year Tobacco Last Used: 1961 - Caffeine Use Caffeine Use: Reports: None - Recreational Drug Use Recreational Drug Use: No ED ROS GENERAL - Review of Systems Review Of Systems: See Below Constitutional: Reports: No Symptoms. Denies: Fever, Chills HEENT: Reports: No Symptoms Respiratory: Reports: No Symptoms. Denies: Shortness of Breath Cardiovascular: Reports: No Symptoms. Denies: Chest Pain, Lightheadedness GI/Abdominal: Reports: Abdominal Pain (Epigastric), Hematemesis, Vomiting. Denies: Black Stool, Diarrhea : Reports: No Symptoms Musculoskeletal: Reports: No Symptoms Skin: Reports: No Symptoms Neurological: Reports: No Symptoms. Denies: Dizziness Psychiatric: Reports: No Symptoms Hematologic/Lymphatic: Reports: No Symptoms Immunologic: Reports: No Symptoms ED EXAM, GI/ABD - Physical Exam Exam: See Below Exam Limited By: No Limitations General Appearance: Alert, WD/WN, No Apparent Distress Respiratory/Chest: No Respiratory Distress, Lungs Clear, Normal Breath Sounds, No Accessory Muscle Use, Chest Non-Tender Cardiovascular: Normal Peripheral Pulses, Regular Rate, Rhythm, No Edema, No Gallop, No JVD, No Murmur, No Rub GI/Abdominal Exam: Normal Bowel Sounds, Soft, No Organomegaly, No Distention, No Abnormal Bruit, No Mass, Pelvis Stable, Tender (Epigastric) Neurological: Alert, Oriented, CN II-XII Intact, Normal Cognition, Normal Gait, Normal Reflexes, No Motor/Sensory Deficits Psychiatric: Normal Affect, Normal Mood Skin Exam: Warm, Dry, Intact, Normal Color, No Rash Course - Vital Signs Last Recorded V/S: Last Vital Signs Temp 97.9 F 04/08/21 16:57 Pulse 97 04/08/21 16:57 Resp 16 04/08/21 16:57 BP 169/88 H 04/08/21 16:57 Pulse Ox 97 04/08/21 16:57 - Orders/Labs/Meds Orders: Active Orders 24 hr Category Date Time Status Admission Status [Patient Status] [ADT] Routine ADT 04/08/21 21:50 Active Peripheral IV Care [RC] . DIRECTED Care 04/08/21 17:07 Active NPO Now [Nothing per Oral Now Diet] [DIET] Diet 04/09/21 Breakfast Active Sodium Chloride 0.9% [Normal Saline] 1,000 ml Med 04/08/21 17:19 Active IV NOW Sodium Chloride 0.9% [Saline Flush] Med 04/08/21 17:07 Active 10 ml FLUSH ASDIRECTED PRN Peripheral IV Insertion Adult [OM.PC] Stat Oth 04/08/21 17:06 Ordered Schedule Procedure [COMM] Routine Oth 04/08/21 20:43 Ordered Schedule Procedure [COMM] Stat Oth 04/08/21 21:52 Ordered Medication Orders Sodium Chloride (Normal Saline) 1,000 mls @ 150 mls/hr IV NOW STA Stop: 04/08/21 23:58 Last Admin: 04/08/21 18:01 Dose: 150 mls/hr Documented by: TRAVIS Sodium Chloride (Sodium Chloride 0.9% 10 Ml Syringe) 10 ml FLUSH ASDIRECTED PRN PRN Reason: Keep Vein Open Last Admin: 04/08/21 18:37 Dose: 10 ml Documented by: [id number] Admin: 04/08/21 18:00 Dose: 10 ml Documented by: TRAVIS Labs: Laboratory Tests 04/08/21 04/08/21 04/08/21 Range/Units 17:25 17:25 17:25 WBC 17.51 H (4.23-9.07) K/mm3 RBC 4.68 (4.63-6.08) M/mm3 Hgb 14.8 (13.7-17.5) gm/dl Hct 44.9 (40.1-51.0) % MCV 95.9 H (79.0-92.2) fl MCH 31.6 (25.7-32.2) pg MCHC 33.0 (32.2-35.5) g/dl RDW Std Deviation 45.5 H (35.1-43.9) fL Plt Count 268 (163-337) K/mm3 MPV 8.8 L (9.4-12.3) fl Neut % (Auto) 82.0 H (34.0-67.9) % Lymph % (Auto) 8.2 L (21.8-53.1) % Benzie % (Auto) 9.1 (5.3-12.2) % Eos % (Auto) 0.2 L (0.8-7.0) Baso % (Auto) 0.2 (0.1-1.2) % Neut # (Auto) 14.38 H (1.78-5.38) K/mm3 Lymph # (Auto) 1.43 (1.32-3.57) K/mm3 Benzie # (Auto) 1.59 H (0.30-0.82) K/mm3 Eos # (Auto) 0.03 L (0.04-0.54) K/mm3 Baso # (Auto) 0.03 (0.01-0.08) K/mm3 Manual Slide Review PT 11.4 (9.7-12.0) SECONDS INR 1.03 APTT 25.6 (21.7-31.4) SECONDS Sodium 141 (136-145) mEq/L Potassium 4.8 (3.5-5.1) mEq/L Chloride 104 (98-107) mEq/L Carbon Dioxide 31 (21-32) mEq/L Anion Gap 10.8 (5-15) BUN 16 (7-18) mg/dL Creatinine 0.9 (0.7-1.3) mg/dL Est Cr Clr Drug Dosing 54.15 mL/min Estimated GFR (MDRD) > 60 (>60) mL/min BUN/Creatinine Ratio 17.8 (14-18) Glucose 112 H (70-99) mg/dL Calcium 9.4 (8.5-10.1) mg/dL Total Bilirubin 0.3 (0.2-1.0) mg/dL AST 16 (15-37) U/L ALT 23 (16-63) U/L Alkaline Phosphatase 163 H (46-116) U/L C-Reactive Protein (<1.0) mg/dL Total Protein 6.9 (6.4-8.2) g/dl Albumin 3.9 (3.4-5.0) g/dl Globulin 3.0 gm/dL Albumin/Globulin Ratio 1.3 (1-2) Urine Color (Yellow) Urine Appearance (Clear) Urine pH (5.0-8.0) Ur Specific [place] (1.005-1.030) Urine Protein (Negative) Urine Glucose (UA) (Negative) Urine Ketones (Negative) Urine Occult Blood (Negative) Urine Nitrite (Negative) Urine Bilirubin (Negative) Urine Urobilinogen (0.2-1.0) Ur Leukocyte Esterase (Negative) Urine RBC (0-5) /hpf Urine WBC (0-5) /hpf Ur Squamous Epith Cells (0-5) /hpf Urine Bacteria (FEW) /hpf Urine Mucus (FEW) /hpf SARS-CoV-2 RNA (MARISOL) (NEGATIVE) 04/08/21 04/08/21 04/08/21 Range/Units 17:25 18:49 20:50 WBC (4.23-9.07) K/mm3 RBC (4.63-6.08) M/mm3 Hgb (13.7-17.5) gm/dl Hct (40.1-51.0) % MCV (79.0-92.2) fl MCH (25.7-32.2) pg MCHC (32.2-35.5) g/dl RDW Std Deviation (35.1-43.9) fL Plt Count (163-337) K/mm3 MPV (9.4-12.3) fl Neut % (Auto) (34.0-67.9) % Lymph % (Auto) (21.8-53.1) % Benzie % (Auto) (5.3-12.2) % Eos % (Auto) (0.8-7.0) Baso % (Auto) (0.1-1.2) % Neut # (Auto) (1.78-5.38) K/mm3 Lymph # (Auto) (1.32-3.57) K/mm3 Benzie # (Auto) (0.30-0.82) K/mm3 Eos # (Auto) (0.04-0.54) K/mm3 Baso # (Auto) (0.01-0.08) K/mm3 Manual Slide Review PT (9.7-12.0) SECONDS INR APTT (21.7-31.4) SECONDS Sodium (136-145) mEq/L Potassium (3.5-5.1) mEq/L Chloride (98-107) mEq/L Carbon Dioxide (21-32) mEq/L Anion Gap (5-15) BUN (7-18) mg/dL Creatinine (0.7-1.3) mg/dL Est Cr Clr Drug Dosing mL/min Estimated GFR (MDRD) (>60) mL/min BUN/Creatinine Ratio (14-18) Glucose (70-99) mg/dL Calcium (8.5-10.1) mg/dL Total Bilirubin (0.2-1.0) mg/dL AST (15-37) U/L ALT (16-63) U/L Alkaline Phosphatase (46-116) U/L C-Reactive Protein 0.6 (<1.0) mg/dL Total Protein (6.4-8.2) g/dl Albumin (3.4-5.0) g/dl Globulin gm/dL Albumin/Globulin Ratio (1-2) Urine Color Yellow (Yellow) Urine Appearance Clear (Clear) Urine pH 7.0 (5.0-8.0) Ur Specific [place] 1.020 (1.005-1.030) Urine Protein Negative (Negative) Urine Glucose (UA) Negative (Negative) Urine Ketones Negative (Negative) Urine Occult Blood Negative (Negative) Urine Nitrite Negative (Negative) Urine Bilirubin Negative (Negative) Urine Urobilinogen 0.2 (0.2-1.0) Ur Leukocyte Esterase Negative (Negative) Urine RBC 0-5 (0-5) /hpf Urine WBC 0-5 (0-5) /hpf Ur Squamous Epith Cells Not seen (0-5) /hpf Urine Bacteria Occasional (FEW) /hpf Urine Mucus Not seen (FEW) /hpf SARS-CoV-2 RNA (MARISOL) Negative (NEGATIVE) Meds: Medications Generic Name Dose Route Start Last Admin Trade Name Freronit PRN Reason Stop Dose Admin Sodium Chloride 1,000 mls @ 150 mls/hr 04/08/21 17:19 04/08/21 18:01 Normal Saline IV 04/08/21 23:58 150 mls/hr NOW STA Administration Sodium Chloride 10 ml 04/08/21 17:07 04/08/21 18:37 Sodium Chloride 0.9% 10 Ml Syringe FLUSH 10 ml ASDIRECTED PRN Administration Keep Vein Open Discontinued Medications Generic Name Dose Route Start Last Admin Trade Name Freronit PRN Reason Stop Dose Admin Bupivacaine HCl Confirm 04/08/21 21:19 Bupivacaine 0.5% 30 Ml Sdv Administered 04/08/21 21:20 Dose 30 ml .ROUTE .STK-MED ONE Cefazolin Sodium Confirm 04/08/21 21:16 Cefazolin 1 Gm Vial Administered 04/08/21 21:17 Dose 2 gm .ROUTE .STK-MED ONE Dexamethasone Confirm 04/08/21 21:16 Dexamethasone 4 Mg/Ml 5 Ml Mdv Administered 04/08/21 21:17 Dose 20 mg .ROUTE .STK-MED ONE Fentanyl Confirm 04/08/21 21:16 Fentanyl 250 Mcg/5 Ml Sdv Administered 04/08/21 21:17 Dose 250 mcg .ROUTE .STK-MED ONE Cefazolin Sodium 2 gm/ Sodium 100 mls @ 100 mls/hr 04/08/21 20:50 Chloride IV 04/08/21 21:49 ONETIME ONE Cefazolin Sodium/Dextrose 50 mls @ 100 mls/hr 04/08/21 21:00 04/08/21 21:20 Ancef 2 Gm/50 Ml IV 04/08/21 21:29 100 mls/hr ONETIME ONE Administration Lactated Ringer's Confirm 04/08/21 22:22 Ringers, Lactated Administered 04/08/21 22:23 Dose 1,000 mls @ as directed .ROUTE .STK-MED ONE Iopamidol 100 ml 04/08/21 18:23 04/08/21 18:37 Iopamidol 612 Mg/Ml 100 Ml Bottle IVPUSH 04/08/21 18:24 100 ml ONETIME ONE Administration Lidocaine HCl Confirm 04/08/21 21:16 Lidocaine 1% 5 Ml Sdv Administered 04/08/21 21:17 Dose 5 ml .ROUTE .STK-MED ONE Midazolam HCl Confirm 04/08/21 21:16 Midazolam 1 Mg/Ml 2 Ml Sdv Administered 04/08/21 21:17 Dose 2 mg .ROUTE .STK-MED ONE Miscellaneous Medication Confirm 04/08/21 22:13 Phenylephrine Hcl In 0.9% Nacl 1 Mg/10 Ml Syringe Administered 04/08/21 22:14 Dose 1 mg .ROUTE .STK-MED ONE Ondansetron HCl 4 mg 04/08/21 17:19 04/08/21 18:00 Ondansetron 4 Mg/2 Ml Sdv IVPUSH 04/08/21 17:20 4 mg ONETIME ONE Administration Ondansetron HCl Confirm 04/08/21 21:16 Ondansetron 4 Mg/2 Ml Sdv Administered 04/08/21 21:17 Dose 4 mg .ROUTE .STK-MED ONE Pantoprazole Sodium 80 mg 04/08/21 17:19 04/08/21 17:56 Pantoprazole 40 Mg Vial IVPUSH 04/08/21 17:20 80 mg BOLUS ONE Administration Propofol Confirm 04/08/21 21:16 Propofol 200 Mg/20 Ml Sdv Administered 04/08/21 21:17 Dose 200 mg .ROUTE .STK-MED ONE Rocuronium Mather Confirm 04/08/21 21:16 Rocuronium 50 Mg/5 Ml Vial Administered 04/08/21 21:17 Dose 50 mg .ROUTE .STK-MED ONE Rocuronium Mather Confirm 04/08/21 22:21 Rocuronium 50 Mg/5 Ml Vial Administered 04/08/21 22:22 Dose 50 mg .ROUTE .[facility] ONE - Re-Assessments/Exams Free Text/Narrative Re-Assessment/Exam: Patient is an 85-year-old male presenting to the emergency department with complaints of sudden onset of epigastric pain which radiates into his lower chest as well as mid emesis. Patient reports that around 1 PM he ate lunch. Sure thereafter he experienced intense epigastric discomfort and vomited up his lunch. He then subsequently vomited up around a cup of blood. He has had no further vomiting since that time but continues to have epigastric discomfort radiates up into his lower chest. It is worse with swallowing. On exam, he is tender to palpation in the epigastrium. I have ordered blood work, urinalysis, Covid, chest x-ray, and an abdomen flat and upright x-ray. Infusion of normal saline, Zofran, and Protonix 80 mg IV. 04/08/211821 Abdomen x-ray shows air-fluid levels in the right lower quadrant but no other abnormalities. There is no evidence of free air under the diaphragm. Chest x- ray somewhat concerning for possible widened mediastinum. Based on this, I am going to order a CT scan of the chest abdomen pelvis with IV contrast to visualize the esophagus and stomach. 04/08/21 21:01 CT scan of the chest pression as follows: 1. Findings described above most likely chronic. 2. Solid nodule within the right lobe of the thyroid gland. Thyroid ultrasound could be obtained to further evaluate. 3. Nothing acute is seen on CT of the chest. CT scan of the abdomen impression as follows: 1. Large hiatal hernia 2. Other findings as described above. 3. Nothing acute appreciated on CT of the abdomen pelvis. Case was discussed with general surgeon on-call, Dr. Watson. He did come in to evaluate the patient and would like to take the patient to surgery to repair his hiatal hernia. Patient is in agreement with this. Departure - Departure Time of Disposition: 21:01 Disposition: DC/Tfer to [facility] Condition: Good Clinical Impression: Upper GI bleed Abdominal pain Qualifiers: Abdominal location: upper abdomen, unspecified Qualified Code(s): R10.10 - Upper abdominal pain, unspecified - Discharge Information Sepsis Event Note (ED) - Evaluation Sepsis Screening Result: No Definite Risk - Focused Exam Vital Signs: Vital Signs Temp Pulse Resp BP Pulse Ox 04/08/21 16:57 97.9 F 97 16 169/88 H 97 - My Orders Last 24 Hours: My Active Orders 04/08/21 17:06 Peripheral IV Insertion Adult [OM.PC] Stat 04/08/21 17:07 Peripheral IV Care [RC] . DIRECTED Sodium Chloride 0.9% [Saline Flush] 10 ml FLUSH ASDIRECTED PRN 04/08/21 17:19 Sodium Chloride 0.9% [Normal Saline] 1,000 ml IV NOW 04/08/21 21:50 Admission Status [Patient Status] [ADT] Routine 04/08/21 21:52 Schedule Procedure [COMM] Stat - Assessment/Plan Last 24 Hours: My Active Orders 04/08/21 17:06 Peripheral IV Insertion Adult [OM.PC] Stat 04/08/21 17:07 Peripheral IV Care [RC] . DIRECTED Sodium Chloride 0.9% [Saline Flush] 10 ml FLUSH ASDIRECTED PRN 04/08/21 17:19 Sodium Chloride 0.9% [Normal Saline] 1,000 ml IV NOW 04/08/21 21:50 Admission Status [Patient Status] [ADT] Routine 04/08/21 21:52 Schedule Procedure [COMM] Stat
[2021-04-08] MEDS: Sodium Chloride 0.9% 10 ML Syringe FLUSH PRN ×2 (18:00→18:37)
[2021-04-08] MEDS ORDERED: Iopamidol 612 MG/ML 100 ML Bottle IVPUSH ONE (18:23)
--- NOTE | 2021-04-08 18:45 | CR ---
Chest: 2 views of the chest were obtained. Comparison: No prior chest imaging is available. Hiatal hernia is noted. Surgical clips are seen within the right chest. Triangular density is seen adjacent to the right heart as well as density within the right upper lung. These findings are most likely due to chronic change secondary to prior surgery. Left lung is clear. Bony structures show old right-sided rib fractures which appear healed. Previous rib resection is also noted. Impression: 1. Findings within the right chest most likely postoperative. 2. Hiatal hernia. 3. Nothing acute is definitely appreciated. Diagnostic code #2
--- NOTE | 2021-04-08 18:45 | CR ---
Abdomen: Supine and upright views of the abdomen were obtained. Comparison: No prior abdominal x-ray, previous CT abdomen and pelvis study of 08/07/13. Mild increased gas is noted within colon and small bowel. There is no definite findings of small bowel or colonic obstruction being seen. Air-fluid leve is seen within the right colon which can be seen normally. Moderately large hiatal hernia is seen. Bony structures are osteopenic. Vascular calcification is noted. No free air is seen. Impression: 1. Slightly increased gas within small bowel and colon. No definite findings of obstruction are seen. 2. Moderately large hiatal hernia. 3. Other findings as noted above which are chronic. Note: If patient remains symptomatic, follow-up study could be obtained in 12 hours. Diagnostic code #2
--- NOTE | 2021-04-08 19:09 | CT ---
CT chest Technique: Multiple axial sections through the chest were obtained. Intravenous contrast was utilized. Reconstructed coronal and sagittal images were obtained. Comparison: Chest x-ray performed earlier on the same day. Findings: Nodule is seen within the right lobe of the thyroid gland measuring 2.3 cm. Thyroid gland is otherwise homogeneous in enhancement. Thoracic aorta shows atherosclerotic calcification with no aneurysm. No mediastinal adenopathy is seen. No hilar adenopathy is seen. No axillary adenopathy is seen. No pericardial thickening is seen. Large hiatal hernia is noted. There is linear density noted along the major fissure which is believed to represent chronic findings. There is irregular density seen within the right lung base most likely representing areas of scarring. Slight pleural thickening is also seen within the right chest which is most likely chronic. Left lung is clear with no acute parenchymal change. Bone window settings were reviewed which show old right-sided rib fractures which appear to be healed. Impression: 1. Findings as described above most likely chronic. 2. Solid nodule within the right lobe of the thyroid gland. Thyroid ultrasound could be obtained to further evaluate. 3. Nothing acute is seen on CT study of the chest. Diagnostic code #2 CT abdomen and pelvis Technique: Multiple axial sections were obtained from above the dome of the diaphragm inferiorly through the pubic symphysis. Intravenous contrast was utilized. No oral contrast has been given. Reconstructed coronal and sagittal images were obtained. Comparison: Prior CT abdomen and pelvis study of 08/07/13. Findings: Large hiatal hernia is noted. Liver contains no focal parenchymal abnormality. Spleen size is normal. Adrenal glands show no nodule. Pancreas appears within normal limits. Gallbladder contains no calcified gallstones. Kidneys show multiple small cysts. Kidneys show symmetric contrast enhancement. Several nonobstructing calcifications are seen within the left kidney. No ureteral calculi are seen. Abdominal aorta shows atherosclerotic calcification which continues into the iliac vessels. No aneurysm is seen. No retroperitoneal adenopathy or mesenteric abnormalities are seen. No pelvic mass or adenopathy is seen. Bladder wall is slightly thickened most likely related to patient's age. Appendix is seen which is normal. No free fluid or inflammatory change is seen. No bowel dilatation is seen. Bone window settings were reviewed which show mild degenerative change within the spine. Impression: 1. Large hiatal hernia. 2. Other findings as described above. 3. Nothing acute is appreciated on CT study of the abdomen and pelvis. Diagnostic code #2
--- NOTE | 2021-04-08 20:48 | PCM.PREANE ---
Preanesthetic Assessment - Procedure Proposed Procedure: Hernia repair - Anesthesia/Transfusion/Family Hx Anesthesia History: Prior Anesthesia Without Reaction Family History of Anesthesia Reaction: No Transfusion History: No Prior Transfusion(s) Intubation History: Unknown - Review of Systems General: No Symptoms Pulmonary: No Symptoms Cardiovascular: No Symptoms Gastrointestinal: Abdominal Pain, Nausea, Vomiting Neurological: Tingling (left fingers) Other: Reports: Thyroid Problems - Physical Assessment NPO Status Date: 04/08/21 NPO Status Time: 14:00 Vital Signs: Last Vital Signs Temp 97.9 F 04/08/21 16:57 Pulse 97 04/08/21 16:57 Resp 16 04/08/21 16:57 BP 169/88 H 04/08/21 16:57 Pulse Ox 97 04/08/21 16:57 Height: 1.68 m Weight: 83.915 kg ASA Class: 3E Mental Status: Alert & Oriented x3 Airway Class: Mallampati = 3 Dentition: Reports: Dentures Thyro-Mental Finger Breadths: 3 Mouth Opening Finger Breadths: 3 ROM/Head Extension: Full Lungs: Clear to Auscultation, Normal Respiratory Effort Cardiovascular: Regular Rate, Regular Rhythm, No Murmurs - Lab Values: Laboratory Last Values WBC 17.51 K/mm3 (4.23-9.07) H 04/08/21 17:25 RBC 4.68 M/mm3 (4.63-6.08) 04/08/21 17:25 Hgb 14.8 gm/dl (13.7-17.5) 04/08/21 17:25 Hct 44.9 % (40.1-51.0) 04/08/21 17:25 MCV 95.9 fl (79.0-92.2) H 04/08/21 17:25 MCH 31.6 pg (25.7-32.2) 04/08/21 17:25 MCHC 33.0 g/dl (32.2-35.5) 04/08/21 17:25 RDW Std Deviation 45.5 fL (35.1-43.9) H 04/08/21 17:25 Plt Count 268 K/mm3 (163-337) 04/08/21 17:25 MPV 8.8 fl (9.4-12.3) L 04/08/21 17:25 Neut % (Auto) 82.0 % (34.0-67.9) H 04/08/21 17:25 Lymph % (Auto) 8.2 % (21.8-53.1) L 04/08/21 17:25 Crockett % (Auto) 9.1 % (5.3-12.2) 04/08/21 17:25 Eos % (Auto) 0.2 (0.8-7.0) L 04/08/21 17:25 Baso % (Auto) 0.2 % (0.1-1.2) 04/08/21 17:25 Neut # (Auto) 14.38 K/mm3 (1.78-5.38) H 04/08/21 17:25 Lymph # (Auto) 1.43 K/mm3 (1.32-3.57) 04/08/21 17:25 Crockett # (Auto) 1.59 K/mm3 (0.30-0.82) H 04/08/21 17:25 Eos # (Auto) 0.03 K/mm3 (0.04-0.54) L 04/08/21 17:25 Baso # (Auto) 0.03 K/mm3 (0.01-0.08) 04/08/21 17:25 Manual Slide Review 04/08/21 17:25 PT 11.4 SECONDS (9.7-12.0) 04/08/21 17:25 INR 1.03 04/08/21 17:25 APTT 25.6 SECONDS (21.7-31.4) 04/08/21 17:25 Sodium 141 mEq/L (136-145) 04/08/21 17:25 Potassium 4.8 mEq/L (3.5-5.1) 04/08/21 17:25 Chloride 104 mEq/L (98-107) 04/08/21 17:25 Carbon Dioxide 31 mEq/L (21-32) 04/08/21 17:25 Anion Gap 10.8 (5-15) 04/08/21 17:25 BUN 16 mg/dL (7-18) 04/08/21 17:25 Creatinine 0.9 mg/dL (0.7-1.3) 04/08/21 17:25 Est Cr Clr Drug Dosing 54.15 mL/min 04/08/21 17:25 Estimated GFR (MDRD) > 60 mL/min (>60) 04/08/21 17:25 BUN/Creatinine Ratio 17.8 (14-18) 04/08/21 17:25 Glucose 112 mg/dL (70-99) H 04/08/21 17:25 Calcium 9.4 mg/dL (8.5-10.1) 04/08/21 17:25 Total Bilirubin 0.3 mg/dL (0.2-1.0) 04/08/21 17:25 AST 16 U/L (15-37) 04/08/21 17:25 ALT 23 U/L (16-63) 04/08/21 17:25 Alkaline Phosphatase 163 U/L (46-116) H 04/08/21 17:25 C-Reactive Protein 0.6 mg/dL (<1.0) 04/08/21 17:25 Total Protein 6.9 g/dl (6.4-8.2) 04/08/21 17:25 Albumin 3.9 g/dl (3.4-5.0) 04/08/21 17:25 Globulin 3.0 gm/dL 04/08/21 17:25 Albumin/Globulin Ratio 1.3 (1-2) 04/08/21 17:25 SARS-CoV-2 RNA (MARISOL) Negative (NEGATIVE) 04/08/21 18:49 - Allergies Allergies/Adverse Reactions: Allergies Allergy/AdvReac Type Severity Reaction Status Date / Time alendronate sodium Allergy Rash Verified 11/09/17 08:57 [From Fosamax] - Blood Blood Available: No Product(s) Available: None - Acknowledgements Anesthesia Type Planned: General Anesthesia Pt an Appropriate Candidate for the Planned Anesthesia: Yes Alternatives and Risks of Anesthesia Discussed w Pt/Guardian: Yes Pt/Guardian Understands and Agrees with Anesthesia Plan: Yes PreAnesthesia Questionnaire HEENT History: Reports: Cataract Other HEENT History: wears glasses, hearing aids, dentures Cardiovascular History: Reports: Afib (Patient stated that he was told one time he had it but does not take medication (coumadin or other blood thinners)) Respiratory History: Reports: SOB Other Respiratory History: Dyspnea on exertion Gastrointestinal History: Reports: Gastritis, GERD, Hemorrhoids, Helicobacter Pylori, Other (See Below) Other Gastrointestinal History: Umbilical hernia, hiatal hernia, esophagitis, dysphagia, esophageal spasm, gastroparesis Genitourinary History: Reports: Other (See Below) Other Genitourinary History: Renal mass BUSINESS SERVICES DIRECTOR History: Reports: None Musculoskeletal History: Reports: None Other Musculoskeletal History: right arm elbow pain, Neurological History: Reports: Neuropathy, Peripheral, Seizure (has not had one in 5 years) Other Neuro History: Dizziness Psychiatric History: Reports: None Endocrine/Metabolic History: Reports: Diabetes, Type II, Hypothyroidism Hematologic History: Reports: None Immunologic History: Reports: None Oncologic (Cancer) History: Reports: Lung, Other (See Below) Dermatologic History: Reports: Other (See Below) Other Dermatologic History: Onychomycosis - Infectious Disease History Infectious Disease History: Reports: None - Past Surgical History Head Surgeries/Procedures: Reports: None HEENT Surgical History: Reports: Tonsillectomy Cardiovascular Surgical History: Reports: None Respiratory Surgical History: Reports: None Other Respiratory Surgeries/Procedures: 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 in [facility] Surgical History: Reports: Colonoscopy, EGD, Hernia, Abdominal Male Surgical History: Reports: None Endocrine Surgical History: Reports: None Neurological Surgical History: Reports: None Other Musculoskeletal Surgeries/Procedures:: Left knee arthroscopy Oncologic Surgical History: Reports: None Dermatological Surgical History: Reports: None - SUBSTANCE USE Tobacco Use Status *Q: Former Tobacco User Tobacco Use Within Last Twelve Months: No Second Hand Smoke Exposure: No Days Per Week of Alcohol Use: 0 Number of Drinks Per Day: 0 Total Drinks Per Week: 0 Recreational Drug Use History: No - HOME MEDS Home Medications: Home Meds Ascorbate Calcium [Vitamin C] 500 mg PO DAILY 10/03/17 [History] Aspirin [Halfprin] 81 mg PO BEDTIME 10/03/17 [History] Calcium Carb/Vitamin D3/Vit K1 [Calcium + D Soft Chewable Tab] 1 tab PO DAILY 10/03/17 [History] Glucosam/Chond-MSM 2/C/D3/Franky [Oinpyvyatu-Arsmignttbv-KLI] 1 tab PO DAILY 10/03/17 [History] Levothyroxine 25 mcg PO DAILY 10/03/17 [History] Lutein 6 mg PO DAILY 10/03/17 [History] Magnesium 200 mg PO DAILY 10/03/17 [History] Multivitamin [Daily Multiple Vitamin] 1 tab PO DAILY 04/24/18 [History] Oxybutynin 5 mg PO DAILY 10/03/17 [History] Phenytoin Sodium Extended [Dilantin] 200 mg PO QPM 10/03/17 [History] Tamsulosin HCl 0.4 mg PO DAILY 10/03/17 [History] Ubidecarenone [Coq-10] 100 mg PO DAILY 10/03/17 [History] Pantoprazole Sodium [Protonix] 40 mg PO DAILY #30 tablet. 11/20/19 [Rx] - CURRENT (IN HOUSE) MEDS Current Meds: Current Medications Sodium Chloride (Normal Saline) 1,000 mls @ 150 mls/hr IV NOW STA Stop: 04/08/21 23:58 Last Admin: 04/08/21 18:01 Dose: 150 mls/hr Documented by: Sodium Chloride (Sodium Chloride 0.9% 10 Ml Syringe) 10 ml FLUSH ASDIRECTED PRN PRN Reason: Keep Vein Open Last Admin: 04/08/21 18:37 Dose: 10 ml Documented by: Discontinued Medications Iopamidol (Iopamidol 612 Mg/Ml 100 Ml Bottle) 100 ml IVPUSH ONETIME ONE Stop: 04/08/21 18:24 Last Admin: 04/08/21 18:37 Dose: 100 ml Documented by: Ondansetron HCl (Ondansetron 4 Mg/2 Ml Sdv) 4 mg IVPUSH ONETIME ONE Stop: 04/08/21 17:20 Last Admin: 04/08/21 18:00 Dose: 4 mg Documented by: Pantoprazole Sodium (Pantoprazole 40 Mg Vial) 80 mg IVPUSH BOLUS ONE Stop: 04/08/21 17:20 Last Admin: 04/08/21 17:56 Dose: 80 mg Documented by:
[2021-04-08] MEDS ORDERED: ceFAZolin 2 GM in Sodium Chloride 0.9% 100 ML IV ONE (20:50)
--- NOTE | 2021-04-08 20:56 | PCM.HP.2 ---
H&P History of Present Illness - General Date of Service: 04/08/21 Admit Problem/Dx: strangulated hiatal hernia Source of Information: Patient History Limitations: Reports: No Limitations - History of Present Illness Initial Comments - Free Text/Narative: Mr. Ellis is an 85 yo man who presents with acute abdominal pain beginning today. He has associated dysphagia and hematemesis. In the ER, he has normal vitals except for sinus tachycardia rate 110 bpm. Labs are significant for WBC 17,[address] scan shows a sizeable hiatal hernia. Findings are worrisome for a strangulated hiatal hernia, especially given his ongoing epigastric pain. He has no cardiac history and takes no blood thinners. He tolerated anesthesia last year for RUL resection for lung cancer and here for umbilical hernia repair. He had an EGD last year with Dr. Hugo which showed a minor Schatzki ring and the hiatal hernia. Middle Epigastric Pain Score (Numeric/FACES): 8 - Related Data Allergies/Adverse Reactions: Allergies Allergy/AdvReac Type Severity Reaction Status Date / Time alendronate sodium Allergy Rash Verified 11/09/17 08:57 [From Fosamax] Home Medications: Home Meds Ascorbate Calcium [Vitamin C] 500 mg PO DAILY 10/03/17 [History] Aspirin [Halfprin] 81 mg PO BEDTIME 10/03/17 [History] Calcium Carb/Vitamin D3/Vit K1 [Calcium + D Soft Chewable Tab] 1 tab PO DAILY 10/03/17 [History] Glucosam/Chond-MSM 2/C/D3/Franky [Kwagzgagge-Mlsvwvyhmej-UEY] 1 tab PO DAILY 10/03/17 [History] Levothyroxine 25 mcg PO DAILY 10/03/17 [History] Lutein 6 mg PO DAILY 10/03/17 [History] Magnesium 200 mg PO DAILY 10/03/17 [History] Multivitamin [Daily Multiple Vitamin] 1 tab PO DAILY 10/03/17 [History] Oxybutynin 5 mg PO DAILY 10/03/17 [History] Phenytoin Sodium Extended [Dilantin] 200 mg PO QPM 10/03/17 [History] Tamsulosin HCl 0.4 mg PO DAILY 10/03/17 [History] Ubidecarenone [Coq-10] 100 mg PO DAILY 10/03/17 [History] Pantoprazole Sodium [Protonix] 40 mg PO DAILY #30 tablet. 11/20/19 [Rx] Past Medical History HEENT History: Reports: Cataract Other HEENT History: wears glasses, hearing aids, dentures Cardiovascular History: Reports: Afib Respiratory History: Reports: SOB Other Respiratory History: Dyspnea on exertion Gastrointestinal History: Reports: Gastritis, GERD, Hemorrhoids, Helicobacter Pylori, Other (See Below) Other Gastrointestinal History: Umbilical hernia, hiatal hernia, esophagitis, dysphagia, esophageal spasm, gastroparesis Genitourinary History: Reports: Other (See Below) Other Genitourinary History: Renal mass [employer] History: Reports: None Musculoskeletal History: Reports: None Other Musculoskeletal History: right arm elbow pain, Neurological History: Reports: Neuropathy, Peripheral, Seizure Other Neuro History: Dizziness Psychiatric History: Reports: None Endocrine/Metabolic History: Reports: Diabetes, Type II, Hypothyroidism Hematologic History: Reports: None Immunologic History: Reports: None Oncologic (Cancer) History: Reports: Other (See Below) Dermatologic History: Reports: Other (See Below) Other Dermatologic History: Onychomycosis - Infectious Disease History Infectious Disease History: Reports: None - Past Surgical History Head Surgeries/Procedures: Reports: None HEENT Surgical History: Reports: Tonsillectomy Cardiovascular Surgical History: Reports: None Respiratory Surgical History: Reports: None Other Respiratory Surgeries/Procedures: 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 in [facility] Surgical History: Reports: Colonoscopy, EGD Male Surgical History: Reports: None Endocrine Surgical History: Reports: None Neurological Surgical History: Reports: None Other Musculoskeletal Surgeries/Procedures:: Left knee arthroscopy Oncologic Surgical History: Reports: None Dermatological Surgical History: Reports: None Social & Family History - Tobacco Use Tobacco Use Status *Q: Former Tobacco User Used Tobacco, but Quit: Yes Month/Year Tobacco Last Used: 1961 - Caffeine Use Caffeine Use: Reports: None - Recreational Drug Use Recreational Drug Use: No H&P Review of Systems - Review of Systems: Review Of Systems: See Below General: Reports: No Symptoms HEENT: Reports: No Symptoms Pulmonary: Reports: No Symptoms Cardiovascular: Reports: Chest Pain Gastrointestinal: Reports: Abdominal Pain, Hematemesis Genitourinary: Reports: No Symptoms Musculoskeletal: Reports: No Symptoms Skin: Reports: No Symptoms Psychiatric: Reports: No Symptoms Neurological: Reports: No Symptoms Hematologic/Lymphatic: Reports: No Symptoms Immunologic: Reports: No Symptoms Exam - Exam Exam: See Below - Vital Signs Vital Signs: Last Vital Signs Temp 36.6 C 04/08/21 16:57 Pulse 97 04/08/21 16:57 Resp 16 04/08/21 16:57 BP 169/88 H 04/08/21 16:57 Pulse Ox 97 04/08/21 16:57 Weight: 83.915 kg - Exam General: Alert, Oriented, Cooperative HEENT: Conjunctiva Clear, Other (hearing aids in place) Neck: Supple, Trachea Midline Lungs: Clear to Auscultation, Normal Respiratory Effort Cardiovascular: Tachycardia, Other (strong radial pulse) GI/Abdominal Exam: Other (protuberant, soft, minor epigastric tenderness) Back Exam: Normal Inspection Extremities: Normal Inspection Skin: Warm, Dry Neuro Extensive - Mental Status: Alert, Oriented x3, Normal Mood/Affect - Patient Data Lab Results Last 24 hrs: Laboratory Results - last 24 hr 04/08/21 04/08/21 04/08/21 Range/Units 17:25 17:25 17:25 WBC 17.51 H (4.23-9.07) K/mm3 RBC 4.68 (4.63-6.08) M/mm3 Hgb 14.8 (13.7-17.5) gm/dl Hct 44.9 (40.1-51.0) % MCV 95.9 H (79.0-92.2) fl MCH 31.6 (25.7-32.2) pg MCHC 33.0 (32.2-35.5) g/dl RDW Std Deviation 45.5 H (35.1-43.9) fL Plt Count 268 (163-337) K/mm3 MPV 8.8 L (9.4-12.3) fl Neut % (Auto) 82.0 H (34.0-67.9) % Lymph % (Auto) 8.2 L (21.8-53.1) % Cassia % (Auto) 9.1 (5.3-12.2) % Eos % (Auto) 0.2 L (0.8-7.0) Baso % (Auto) 0.2 (0.1-1.2) % Neut # (Auto) 14.38 H (1.78-5.38) K/mm3 Lymph # (Auto) 1.43 (1.32-3.57) K/mm3 Cassia # (Auto) 1.59 H (0.30-0.82) K/mm3 Eos # (Auto) 0.03 L (0.04-0.54) K/mm3 Baso # (Auto) 0.03 (0.01-0.08) K/mm3 Manual Slide Review PT 11.4 (9.7-12.0) SECONDS INR 1.03 APTT 25.6 (21.7-31.4) SECONDS Sodium 141 (136-145) mEq/L Potassium 4.8 (3.5-5.1) mEq/L Chloride 104 (98-107) mEq/L Carbon Dioxide 31 (21-32) mEq/L Anion Gap 10.8 (5-15) BUN 16 (7-18) mg/dL Creatinine 0.9 (0.7-1.3) mg/dL Est Cr Clr Drug Dosing 54.15 mL/min Estimated GFR (MDRD) > 60 (>60) mL/min BUN/Creatinine Ratio 17.8 (14-18) Glucose 112 H (70-99) mg/dL Calcium 9.4 (8.5-10.1) mg/dL Total Bilirubin 0.3 (0.2-1.0) mg/dL AST 16 (15-37) U/L ALT 23 (16-63) U/L Alkaline Phosphatase 163 H (46-116) U/L C-Reactive Protein (<1.0) mg/dL Total Protein 6.9 (6.4-8.2) g/dl Albumin 3.9 (3.4-5.0) g/dl Globulin 3.0 gm/dL Albumin/Globulin Ratio 1.3 (1-2) SARS-CoV-2 RNA (MARISOL) (NEGATIVE) 04/08/21 04/08/21 Range/Units 17:25 18:49 WBC (4.23-9.07) K/mm3 RBC (4.63-6.08) M/mm3 Hgb (13.7-17.5) gm/dl Hct (40.1-51.0) % MCV (79.0-92.2) fl MCH (25.7-32.2) pg MCHC (32.2-35.5) g/dl RDW Std Deviation (35.1-43.9) fL Plt Count (163-337) K/mm3 MPV (9.4-12.3) fl Neut % (Auto) (34.0-67.9) % Lymph % (Auto) (21.8-53.1) % Cassia % (Auto) (5.3-12.2) % Eos % (Auto) (0.8-7.0) Baso % (Auto) (0.1-1.2) % Neut # (Auto) (1.78-5.38) K/mm3 Lymph # (Auto) (1.32-3.57) K/mm3 Cassia # (Auto) (0.30-0.82) K/mm3 Eos # (Auto) (0.04-0.54) K/mm3 Baso # (Auto) (0.01-0.08) K/mm3 Manual Slide Review PT (9.7-12.0) SECONDS INR APTT (21.7-31.4) SECONDS Sodium (136-145) mEq/L Potassium (3.5-5.1) mEq/L Chloride (98-107) mEq/L Carbon Dioxide (21-32) mEq/L Anion Gap (5-15) BUN (7-18) mg/dL Creatinine (0.7-1.3) mg/dL Est Cr Clr Drug Dosing mL/min Estimated GFR (MDRD) (>60) mL/min BUN/Creatinine Ratio (14-18) Glucose (70-99) mg/dL Calcium (8.5-10.1) mg/dL Total Bilirubin (0.2-1.0) mg/dL AST (15-37) U/L ALT (16-63) U/L Alkaline Phosphatase (46-116) U/L C-Reactive Protein 0.6 (<1.0) mg/dL Total Protein (6.4-8.2) g/dl Albumin (3.4-5.0) g/dl Globulin gm/dL Albumin/Globulin Ratio (1-2) SARS-CoV-2 RNA (MARISOL) Negative (NEGATIVE) Result Diagrams: 04/08/21 17:25 04/08/21 17:25 Sepsis Event Note - Evaluation Sepsis Screening Result: No Definite Risk - Focused Exam Vital Signs: Vital Signs Temp Pulse Resp BP Pulse Ox 04/08/21 16:57 36.6 C 97 16 169/88 H 97 Problem List Initiated/Reviewed/Updated: Yes Orders Last 24hrs: Active Orders 24 hr Category Date Time Status Peripheral IV Care [RC] . DIRECTED Care 04/08/21 17:07 Active NPO Now [Nothing per Oral Now Diet] [DIET] Diet 04/09/21 Breakfast Active UA W/MICROSCOPIC [URIN] Stat Lab 04/08/21 18:23 Ordered Sodium Chloride 0.9% [Normal Saline] 1,000 ml Med 04/08/21 17:19 Active IV NOW Sodium Chloride 0.9% [Saline Flush] Med 04/08/21 17:07 Active 10 ml FLUSH ASDIRECTED PRN ceFAZolin [Ancef] 2 gm Med 04/08/21 20:50 Ordered Sodium Chloride 0.9% [Normal Saline] 100 ml IV ONETIME Peripheral IV Insertion Adult [OM.PC] Stat Oth 04/08/21 17:06 Ordered Schedule Procedure [COMM] Routine Oth 04/08/21 20:43 Ordered Medication Orders Sodium Chloride (Normal Saline) 1,000 mls @ 150 mls/hr IV NOW STA Stop: 04/08/21 23:58 Last Admin: 04/08/21 18:01 Dose: 150 mls/hr Documented by: TRAVIS Cefazolin Sodium 2 gm/ Sodium (Chloride) 100 mls @ 100 mls/hr IV ONETIME ONE Stop: 04/08/21 21:49 Sodium Chloride (Sodium Chloride 0.9% 10 Ml Syringe) 10 ml FLUSH ASDIRECTED PRN PRN Reason: Keep Vein Open Last Admin: 04/08/21 18:37 Dose: 10 ml Documented by: Admin: 04/08/21 18:00 Dose: 10 ml Documented by: TRAVIS Assessment/Plan Comment:: Hematemesis, epigastric pain, tachycardia and leukocytosis concerning for stra ngulated hiatal hernia- significant hernia is seen on CT imaging. I discussed recommendation for emergent laparoscopic hernia repair with partial fundoplication and possible g-tube gastropexy. I discussed the possibility, though unlikely, of necrotic stomach which would require resection. I reviewed possible adverse effects of fundoplication including dysphagia and gas bloat. All questions were answered to the patient's satisfaction and we will proceed to the operating room LEON. - Mortality Measure Prognosis:: Good
[2021-04-08] MEDS ORDERED: fentaNYL 250 MCG/5 ML SDV ONE (21:16)
[2021-04-08] MEDS ORDERED: Ondansetron 4 MG/2 ML SDV ONE (21:16)
[2021-04-08] MEDS ORDERED: Midazolam 1 MG/ML 2 ML SDV ONE (21:16)
[2021-04-08] MEDS ORDERED: Propofol 200 MG/20 ML SDV ONE (21:16)
[2021-04-08] MEDS ORDERED: Rocuronium 50 MG/5 ML Vial ONE ×2 (21:16→22:21)
[2021-04-08] MEDS ORDERED: Dexamethasone 4 MG/ML 5 ML MDV ONE (21:16)
[2021-04-08] MEDS ORDERED: ceFAZolin 1 GM Vial ONE (21:16)
[2021-04-08] MEDS ORDERED: Bupivacaine 0.5% 30 ML SDV ONE (21:19)
[2021-04-08] MEDS ORDERED: Succinylcholine/Sod PF 100 MG/5 ML SYRINGE IV ONE (21:52)
[2021-04-08] MEDS ORDERED: Lactated Ringers 1,000 ML ONE ×2 (22:22→23:23)
[2021-04-09] MEDS ORDERED: Rocuronium 50 MG/5 ML Vial ONE (00:19)
[2021-04-09] MEDS ORDERED: Lactated Ringers 1,000 ML ONE (01:08)
[2021-04-09] MEDS ORDERED: fentaNYL 250 MCG/5 ML SDV ONE (01:26)
[2021-04-09] MEDS ORDERED: ceFAZolin 1 GM Vial ONE (01:31)
[2021-04-09] MEDS ORDERED: Morphine 2 MG/ML SYRINGE IVPUSH PRN (02:34)
[2021-04-09] MEDS ORDERED: Ondansetron 4 MG in Sodium Chloride 0.9% 50 ML IV PRN (02:45)
[2021-04-09] MEDS ORDERED: Lactated Ringers 1,000 ML IV SCH (02:45)
[2021-04-09] MEDS ORDERED: Promethazine 12.5 MG in Sodium Chloride 0.9% 50 ML IV PRN (02:46)
[2021-04-09] MEDS ORDERED: Ondansetron 4 MG/2 ML SDV IVPUSH PRN ×2 (02:50→02:51)
[2021-04-09] MEDS ORDERED: HYDROmorphone 0.5 MG/0.5 ML Syringe IVPUSH PRN (02:51)
[2021-04-09] MEDS ORDERED: fentaNYL 100 MCG/2 ML SDV IVPUSH PRN (02:51)
--- NOTE | 2021-04-09 02:53 | PCM.POSTAN ---
POST ANESTHESIA ASSESSMENT - MENTAL STATUS Mental Status: Alert, Oriented - VITAL SIGNS Vital Signs: Last Vital Signs Temp 97.9 F 04/08/21 16:57 Pulse 97 04/08/21 16:57 Resp 16 04/08/21 16:57 BP 169/88 H 04/08/21 16:57 Pulse Ox 97 04/08/21 16:57 04/09/21: 151/72 HR 90 rr 10 97.4 98% 6 liters - RESPIRATORY Respiratory Status: Respiratory Rate WNL, Airway Patent, O2 Saturation Stable - CARDIOVASCULAR CV Status: Pulse Rate WNL, Blood Pressure Stable - GASTROINTESTINAL GI Status: No Symptoms - PAIN Pain Score: 0 - POST OP HYDRATION Hydration Status: Adequate & Stable
[2021-04-09] MEDS ORDERED: Heparin Sodium 5,000 Units/ML Vial SUBCUT SCH (03:00)
--- NOTE | 2021-04-09 03:12 | PCM.PRNOTE ---
- Free Text/Narrative Note: Date: 04/09/2021 Operation: laparoscopic hiatal hernia repair with partial fundoplication, with diagnostic esophagogastroduodenoscopy Indication: hematemesis and chest pain with hiatal hernia on CT scan and leukocytosis, tachycardia Surgeon: Moise Watson MD Assisting: Romario Rutherford MD Findings: moderate size hiatal hernia, reducible, with viable appearing stomach. Foodstuff in stomach and distal esophagus on endoscopy. Hiatal closure reinforced with Surgisis mesh. Toupet fundoplication completed. Detailed Report: The patient was taken to the OR emergently and placed on the table in supine position. Time out was performed and general endotracheal anesthesia initiated. Direct laryngoscopy was not successful and the glide scope was used for intubation. An orogastric tube could only be advanced to 20 cm from the teeth before resistance was met. A zarate catheter was placed. The abdominal hair was clipped. The patient was repositioned into low lithotomy. The abdomen was prepped and draped in sterile fashion. A Veress needle was inserted in the left upper quadrant and pneumoperitoneum established. Once pressure reached 15 mm Hg, air was aspirated a few cm superior and lateral (left) to the umbilicus. A 12 mm bladed trocar was inserted at this site. A 10 mm 30 degree laparoscope was inserted. The Veress had not caused injury and was removed. A 5mm port was then placed at the upper left lateral abdomen. A 12 mm port for the surgeon's right hand was placed at the site of Veress insertion. A right lateral 5 mm port was placed for the liver retractor. Finally, a port was placed just right of midline in the epigastrium for the surgeon's left hand. The patient was positioned in steep reverse Trendelenburg. A triangular liver retractor was placed to hold the left lobe anteriorly and help expose the hiatus. The stomach and hiatal hernia were visible, and the stomach was not incarcerated. Graspers were used to pull the stomach down into the abdomen. Hook cautery was used to incise through peritoneum at the level of the wayne laterally, down to skeletal muscle. This level of dissection was carried around anteriorly and medially, freeing up the edge of the hernia sac. Diaphragmatic muscle fibers were reflected off the sac as it was pulled down into the abdomen. The posterior mediastinum and esophagus were well visualized. Next, the omentum was taken off the greater curvature starting at about the proximal 1/3 of the stomach using the [place] Ligasure. The lesser sac was entered, and the line of dissection as carried up to the hiatus. Short gastric vessels were divided. A window was then developed from medial to lateral, posterior to the esophagus, and the distal esophagus was enci rcled with a naz drain which was secured with an endoloop. The esophagus was retracted inferiorly and dissection was carried up into the chest, mobilizing the esophagus. Esophagogastroscopy was performed at this time, with murky fluid in the esophagus and a fair amount of food in the stomach. Air was suctioned and the scope withdrawn. Next, the diaphragm was closed with interrupted pledgeted 0 ethibond suture; three stitches posteriorly and one stitch anteriorly. Posterior closure was reinforced with a piece of Surgisis mesh, secure in place with Tisseel. The window posterior to the intra-abdominal esophagus was then developed until the fundus was able to be passed posteriorly from lateral to medial. A shoeshine maneuver was performed to confirm proper positioning for fundoplication. A total of six sutures, 2-0 ethibond, were used to create a Toupet fundoplication. The liver retractor was then removed. Larger port sites were closed at the level of fascia with 0 vicryl using a laparoscopic suture passer. Smaller lateral ports were removed under laparoscopic visualization and hemostasis was satisfactory. Pneumoperitoneum was released and all incisions were closed at the level of skin with running vicryl and dressed with dermabond. A total of 30 cc 0.5% marcaine with epinephrine was used for local anesthetic throughout the case. The patient tolerated the procedure well.
[2021-04-09] MEDS: Acetaminophen 325 MG Tab PO SCH ×3 (05:31→17:56)
[2021-04-09] MEDS: Levothyroxine 25 MCG Tab PO SCH (07:07)
[2021-04-09] MEDS: oxyCODONE 5 MG Tab PO PRN ×2 (07:07→21:36)
--- NOTE | 2021-04-09 07:37 | PCM48HPAN ---
Post Anesthesia Note - EVALUATION WITHIN 48HRS OF ANESTHETIC Vital Signs in Normal Range: Yes Patient Participated in Evaluation: Yes Respiratory Function Stable: Yes Airway Patent: Yes Cardiovascular Function Stable: Yes Hydration Status Stable: Yes Pain Control Satisfactory: Yes Nausea and Vomiting Control Satisfactory: Yes Mental Status Recovered: Yes Vital Signs: Last Vital Signs Temp 36.7 C 04/09/21 03:56 Pulse 86 04/09/21 07:01 Resp 16 04/09/21 03:56 BP 125/60 04/09/21 07:01 Pulse Ox 99 04/09/21 07:01 - COMMENTS/OBSERVATIONS Free Text/Narrative:: no anesthesia complications noted
[2021-04-09] MEDS: Oxybutynin 5 MG Tab PO SCH (08:28)
[2021-04-09] MEDS: Tamsulosin 0.4 MG Cap.ER PO SCH (08:28)
--- NOTE | 2021-04-09 10:58 | PCM.SN.2 ---
- Free Text/Narrative Note: POD 1 s/p emergent laparoscopic hiatal hernia repair. S: reports some bloating and sore throat, otherwise no complaints. Tolerating clears. O: AF, VSS WBC stable at 17,000, other labs within normal range ample urine output Awake and alert, no distress Breathing comfortably on room air, SpO2 94% RRR Abdomen soft, appropriately tender, distended, incisions look good zarate catheter in place with clear yellow urine output A: doing well after after laparoscopic hiatal hernia repair with Toupet fundoplication. No concern for ischemia at time of operation. P: -remove zarate catheter, watch for urinary retention -continue clears until evening, may advance to fulls -simethicone added for bloating -ambulate, IS, PT/OT consult as needed -repeat CBC in AM Time Documentation
[2021-04-09] MEDS: Phenytoin 100 MG Cap.ER PO SCH ×2 (11:02→17:55)
[2021-04-09] MEDS: Simethicone 80 MG Tab.Chew PO PRN ×2 (11:04→21:37)
[2021-04-09] MEDS: Heparin Sodium 5,000 Units/ML Vial SUBCUT SCH ×2 (11:04→21:34)
[2021-04-10] MEDS: Acetaminophen 325 MG Tab PO SCH ×3 (03:53→18:09)
[2021-04-10] MEDS: Heparin Sodium 5,000 Units/ML Vial SUBCUT SCH ×3 (03:54→20:38)
[2021-04-10] MEDS: Levothyroxine 25 MCG Tab PO SCH (07:22)
[2021-04-10] MEDS ORDERED: Docusate Sodium 100 MG Cap PO PRN (08:13)
[2021-04-10] MEDS: Docusate Sodium 100 MG Cap PO SCH (08:46)
[2021-04-10] MEDS: Polyethylene Glycol 3350 Powder 17 GM Packet PO SCH ×2 (08:46→20:36)
[2021-04-10] MEDS: Oxybutynin 5 MG Tab PO SCH (08:46)
[2021-04-10] MEDS: Tamsulosin 0.4 MG Cap.ER PO SCH (08:46)
[2021-04-10] MEDS: Phenytoin 100 MG Cap.ER PO SCH ×2 (08:47→18:12)
[2021-04-11] MEDS: Heparin Sodium 5,000 Units/ML Vial SUBCUT SCH ×2 (03:30→11:53)
[2021-04-11] MEDS: Acetaminophen 325 MG Tab PO SCH ×2 (03:30→09:45)
[2021-04-11] MEDS: Levothyroxine 25 MCG Tab PO SCH (05:44)
--- NOTE | 2021-04-11 09:21 | PCM.SN.2 ---
- Free Text/Narrative Note: POD 2 s/p emergent laparoscopic hiatal hernia repair. S: No complaints, feeling better. Tolerating clears. O: AF, VSS WBC down to 11,000 from 17,000 voiding after zarate removal Awake and alert, no distress Breathing comfortably on room air, SpO2 94% RRR Abdomen soft, appropriately tender, distended, incisions look good A: doing well after after laparoscopic hiatal hernia repair with Toupet fundoplication. No concern for ischemia at time of operation. P: full liquid diet. Anticipate discharge to home tomorrow. Time Documentation
--- NOTE | 2021-04-11 09:28 | PCM.DCSUM1 ---
Discharge Summary - Hospital Course Free Text/Narrative:: Mr. Ellis presented to the ER with chest pain and hematemesis and was found to have leukocytosis and significant hiatal hernia on CT imaging. Due to concerning findings of persistent severe chest pain and leukocytosis, he was taken to the operating room emergently for laparoscopic exploration and hiatal hernia repair with partial fundoplication along with diagnostic esophagogastroscopy. There was no incarceration or strangulation evident. He did well post-operatively, tolerating a full liquid diet. He was deemed fit for discharge to home on POD 3. Diagnosis: Stroke: No - Discharge Data Discharge Date: 04/11/21 Discharge Disposition: Home, Self-Care 01 Condition: Good - Referral to Home Health Primary Care Physician: Debra Riley MD - Patient Summary/Data Operative Procedure(s) Performed: laparoscopic hiatal hernia repair with Toupet fundoplication Consults: Consultations 04/09/21 15:42 Consult to Physical Therapy [PT Evaluation and Treatment] [CONS] Routine - Patient Instructions Diet: Full Liquid Diet Activity: No Lifting Over 10 Pounds Showering/Bathing: May Shower Wound/Incision Care: Keep Operative Site/Wound Site Clean and Dry Notify Provider of: Fever, Increased Pain, Swelling and Redness, Drainage, Nausea and/or Vomiting - Discharge Plan *PRESCRIPTION DRUG MONITORING PROGRAM REVIEWED*: Not Applicable *COPY OF PRESCRIPTION DRUG MONITORING REPORT IN PATIENT MIHAI: Not Applicable Prescriptions/Med Rec: Ondansetron [Ondansetron ODT] 4 mg PO Q6H PRN #30 tab.rapdis PRN Reason: Nausea Home Medications: Home Meds Ascorbate Calcium [Vitamin C] 500 mg PO DAILY 10/03/17 [History] Aspirin [Halfprin] 81 mg PO BEDTIME 10/03/17 [History] Calcium Carb/Vitamin D3/Vit K1 [Calcium + D Soft Chewable Tab] 1 tab PO DAILY 10/03/17 [History] Glucosam/Chond-MSM 2/C/D3/Franky [Ewlseqccwc-Svjkxuctvbf-HZK] 1 tab PO DAILY 10/03/17 [History] Levothyroxine 25 mcg PO DAILY 10/03/17 [History] Lutein 6 mg PO DAILY 10/03/17 [History] Magnesium 200 mg PO DAILY 10/03/17 [History] Multivitamin [Daily Multiple Vitamin] 1 tab PO DAILY 10/03/17 [History] Oxybutynin 5 mg PO DAILY 10/03/17 [History] Phenytoin Sodium Extended [Dilantin] 200 mg PO QPM 10/03/17 [History] Tamsulosin HCl 0.4 mg PO DAILY 10/03/17 [History] Ubidecarenone [Coq-10] 100 mg PO DAILY 10/03/17 [History] Phenytoin Sodium Extended [Dilantin] 100 mg PO DAILY 04/09/21 [History] Pyridoxine HCl [Vitamin B-6] 25 mg PO DAILY 04/09/21 [History] Ondansetron [Ondansetron ODT] 4 mg PO Q6H PRN #30 tab.rapdis 04/11/21 [Rx] Oxygen Therapy Mode: Room Air Forms: ED Department Discharge Referrals: Debra Riley MD [Primary Care Provider] - (Follow up as needed) Moise Watson MD [Physician] - - Discharge Summary/Plan Comment DC Time >30 min.: Yes Total # of Minutes for Discharge Time: 31 Discharge Summary/Plan Comment: follow up in clinic this coming Monday, 04/16. - Patient Data Vitals - Most Recent: Last Vital Signs Temp 36.9 C 04/11/21 03:30 Pulse 72 04/11/21 03:30 Resp 13 04/11/21 03:30 BP 138/74 04/11/21 03:30 Pulse Ox 94 L 04/11/21 03:30 Weight - Most Recent: 83.416 kg I&O - Last 24 hours: Intake & Output 04/10/21 04/11/21 04/11/21 22:59 06:59 14:59 Intake Total 1240 600 Output Total 650 1300 Balance 590 -700 Med Orders - Current: Current Medications Acetaminophen (Acetaminophen 325 Mg Tab) 975 mg PO Q8H [facility] Last Admin: 04/11/21 03:30 Dose: 975 mg Documented by: Docusate Sodium (Docusate Sodium 100 Mg Cap) 100 mg PO DAILY [facility] Last Admin: 04/10/21 08:46 Dose: 100 mg Documented by: Heparin Sodium (Porcine) (Heparin Sodium 5,000 Units/Ml Vial) 5,000 units SUBCUT Q8H [facility] Last Admin: 04/11/21 03:30 Dose: 5,000 units Documented by: Promethazine HCl 12.5 mg/ (Sodium Chloride) 50.5 mls @ 100 mls/hr IV Q6H PRN PRN Reason: Nausea Levothyroxine Sodium (Levothyroxine 25 Mcg Tab) 25 mcg PO ACBREAKFAST [facility] Last Admin: 04/11/21 05:44 Dose: 25 mcg Documented by: Morphine Sulfate (Morphine 2 Mg/Ml Syringe) 1 mg IVPUSH Q4H PRN PRN Reason: Pain (severe 7-10) Ondansetron HCl (Ondansetron 4 Mg/2 Ml Sdv) 4 mg IVPUSH Q6H PRN PRN Reason: NAUSEA Oxybutynin Chloride (Oxybutynin 5 Mg Tab) 5 mg PO DAILY [facility] Last Admin: 04/10/21 08:46 Dose: 5 mg Documented by: Oxycodone HCl (Oxycodone 5 Mg Tab) 5 mg PO Q4H PRN PRN Reason: Pain (moderate 4-6) Last Admin: 04/09/21 21:36 Dose: 5 mg Documented by: Phenytoin Sodium (Phenytoin 100 Mg Cap.Er) 200 mg PO QPM [facility] Last Admin: 04/10/21 18:12 Dose: 200 mg Documented by: Phenytoin Sodium (Phenytoin 100 Mg Cap.Er) 100 mg PO DAILY [facility] Last Admin: 04/10/21 08:47 Dose: 100 mg Documented by: Polyethylene Glycol (Polyethylene Glycol 3350 Powder 17 Gm Packet) 17 gm PO BID [facility] Last Admin: 04/10/21 20:36 Dose: 17 gm Documented by: Simethicone (Simethicone 80 Mg Tab.Chew) 80 mg PO Q4H PRN PRN Reason: Pain Last Admin: 04/09/21 21:37 Dose: 80 mg Documented by: Sodium Chloride (Sodium Chloride 0.9% 10 Ml Syringe) 10 ml FLUSH ASDIRECTED PRN PRN Reason: Keep Vein Open Last Admin: 04/08/21 18:37 Dose: 10 ml Documented by: Tamsulosin HCl (Tamsulosin 0.4 Mg Cap.Er) 0.4 mg PO DAILY [facility] Last Admin: 04/10/21 08:46 Dose: 0.4 mg Documented by: Discontinued Medications Bupivacaine HCl (Bupivacaine 0.5% 30 Ml Sdv) Confirm Administered Dose 30 ml .ROUTE .[facility] ONE Stop: 04/08/21 21:20 Last Admin: 04/08/21 22:19 Dose: 20 ml Documented by: Cefazolin Sodium (Cefazolin 1 Gm Vial) Confirm Administered Dose 2 gm .ROUTE .STK-MED ONE Stop: 04/08/21 21:17 Cefazolin Sodium (Cefazolin 1 Gm Vial) Confirm Administered Dose 2 gm .ROUTE .STK-MED ONE Stop: 04/09/21 01:32 Dexamethasone (Dexamethasone 4 Mg/Ml 5 Ml Mdv) Confirm Administered Dose 20 mg .ROUTE .STK-MED ONE Stop: 04/08/21 21:17 Docusate Sodium (Docusate Sodium 100 Mg Cap) 100 mg PO DAILY PRN PRN Reason: Constipation Fentanyl (Fentanyl 250 Mcg/5 Ml Sdv) Confirm Administered Dose 250 mcg .ROUTE .STK-MED ONE Stop: 04/08/21 21:17 Fentanyl (Fentanyl 250 Mcg/5 Ml Sdv) Confirm Administered Dose 250 mcg .ROUTE .STK-MED ONE Stop: 04/09/21 01:27 Fentanyl (Fentanyl 100 Mcg/2 Ml Sdv) 50 mcg IVPUSH Q5M PRN PRN Reason: Pain Last Admin: 04/09/21 03:08 Dose: 50 mcg Documented by: Glycopyrrolate (Glycopyrrolate 0.2 Mg/Ml 2 Ml Syringe) Confirm Administered Dose 0.4 mg .ROUTE .STK-MED ONE Stop: 04/09/21 02:34 Heparin Sodium (Porcine) (Heparin Sodium 5,000 Units/Ml Vial) 5,000 units SUBCUT Q8H [facility] Last Admin: 04/09/21 04:00 Dose: 5,000 units Documented by: Hydromorphone HCl (Hydromorphone 0.5 Mg/0.5 Ml Syringe) 0.5 mg IVPUSH Q10M PRN PRN Reason: Pain (severe 7-10) Sodium Chloride (Normal Saline) 1,000 mls @ 150 mls/hr IV NOW STA Stop: 04/08/21 23:58 Last Admin: 04/08/21 18:01 Dose: 150 mls/hr Documented by: Cefazolin Sodium 2 gm/ Sodium (Chloride) 100 mls @ 100 mls/hr IV ONETIME ONE Stop: 04/08/21 21:49 Last Admin: 04/09/21 05:49 Dose: Not Given Documented by: Cefazolin Sodium/Dextrose (Ancef 2 Gm/50 Ml) 50 mls @ 100 mls/hr IV ONETIME ONE Stop: 04/08/21 21:29 Last Admin: 04/08/21 21:20 Dose: 100 mls/hr Documented by: Lactated Ringer's (Ringers, Lactated) Confirm Administered Dose 1,000 mls @ as directed .ROUTE .STK-MED ONE Stop: 04/08/21 22:23 Lactated Ringer's (Ringers, Lactated) Confirm Administered Dose 1,000 mls @ as directed .ROUTE .STK-MED ONE Stop: 04/08/21 23:24 Lactated Ringer's (Ringers, Lactated) Confirm Administered Dose 1,000 mls @ as directed .ROUTE .ST-MED ONE Stop: 04/09/21 01:09 Lactated Ringer's (Ringers, Lactated) 1,000 mls @ 100 mls/hr IV ASDIRECTED [facility] Iopamidol (Iopamidol 612 Mg/Ml 100 Ml Bottle) 100 ml IVPUSH ONETIME ONE Stop: 04/08/21 18:24 Last Admin: 04/08/21 18:37 Dose: 100 ml Documented by: Lidocaine HCl (Lidocaine 1% 5 Ml Sdv) Confirm Administered Dose 5 ml .ROUTE .STK-MED ONE Stop: 04/08/21 21:17 Midazolam HCl (Midazolam 1 Mg/Ml 2 Ml Sdv) Confirm Administered Dose 2 mg .ROUTE .STK-MED ONE Stop: 04/08/21 21:17 Miscellaneous Medication (Phenylephrine Hcl In 0.9% Nacl 1 Mg/10 Ml Syringe) Confirm Administered Dose 1 mg .ROUTE .STK-MED ONE Stop: 04/08/21 22:14 Neostigmine Methylsulfate (Neostigmine Methylsulfate 5 Mg/5 Ml Syringe) Confirm Administered Dose 5 mg .ROUTE .STK-MED ONE Stop: 04/09/21 02:34 Ondansetron HCl (Ondansetron 4 Mg/2 Ml Sdv) 4 mg IVPUSH ONETIME ONE Stop: 04/08/21 17:20 Last Admin: 04/08/21 18:00 Dose: 4 mg Documented by: Ondansetron HCl (Ondansetron 4 Mg/2 Ml Sdv) Confirm Administered Dose 4 mg .ROUTE .STK-MED ONE Stop: 04/08/21 21:17 Ondansetron HCl (Ondansetron 4 Mg/2 Ml Sdv) 4 mg IVPUSH ONETIME PRN PRN Reason: Nausea/Vomiting Stop: 04/09/21 16:00 Pantoprazole Sodium (Pantoprazole 40 Mg Vial) 80 mg IVPUSH BOLUS ONE Stop: 04/08/21 17:20 Last Admin: 04/08/21 17:56 Dose: 80 mg Documented by: Propofol (Propofol 200 Mg/20 Ml Sdv) Confirm Administered Dose 200 mg .ROUTE .STK-MED ONE Stop: 04/08/21 21:17 Rocuronium [place] (Rocuronium 50 Mg/5 Ml Vial) Confirm Administered Dose 50 mg .ROUTE .STK-MED ONE Stop: 04/08/21 21:17 Rocuronium [place] (Rocuronium 50 Mg/5 Ml Vial) Confirm Administered Dose 50 mg .ROUTE .STK-MED ONE Stop: 04/08/21 22:22 Rocuronium [place] (Rocuronium 50 Mg/5 Ml Vial) Confirm Administered Dose 50 mg .ROUTE .STK-MED ONE Stop: 04/09/21 00:20
[2021-04-11] MEDS: Docusate Sodium 100 MG Cap PO SCH (09:40)
[2021-04-11] MEDS: Oxybutynin 5 MG Tab PO SCH (09:40)
[2021-04-11] MEDS: Tamsulosin 0.4 MG Cap.ER PO SCH (09:41)
[2021-04-11] MEDS: Phenytoin 100 MG Cap.ER PO SCH (09:41)
[2021-04-11] MEDS: Polyethylene Glycol 3350 Powder 17 GM Packet PO SCH (09:41)
== END 2021-04-11 13:06 | disposition home or self-care (01) | DRG 327 ==
LOC: JD.ED 16:13 → JD.SDS 21:54 → JD.OB 04-09 02:34 → JD.MS 04-09 09:37
PROVIDERS: ADMIT Surgery; ATTEND Surgery
PROC: 0DV44ZZ Restriction of Esophagogastric Junction, Percutaneous Endoscopic Approach (ICD-10-PCS; principal; 2021-04-08)
PROC: 0BUT4JZ Supplement Diaphragm with Synthetic Substitute, Percutaneous Endoscopic Approach (ICD-10-PCS; 2021-04-08)
PROC: 0DJ08ZZ Inspection of Upper Intestinal Tract, Via Natural or Artificial Opening Endoscopic (ICD-10-PCS; 2021-04-08)
DX: K44.9 Diaphragmatic hernia without obstruction or gangrene (principal); K92.0 Hematemesis; I48.91 Unspecified atrial fibrillation; R10.10 Upper abdominal pain, unspecified; K21.9 Gastro-esophageal reflux disease without esophagitis; K42.9 Umbilical hernia without obstruction or gangrene; Z97.3 Presence of spectacles and contact lenses; H91.93 Unspecified hearing loss, bilateral; E11.42 Type 2 diabetes mellitus with diabetic polyneuropathy; E03.9 Hypothyroidism, unspecified; B35.1 Tinea unguium; Z20.822 Contact with and (suspected) exposure to COVID-19; R00.0 Tachycardia, unspecified; D72.829 Elevated white blood cell count, unspecified; Z90.89 Acquired absence of other organs; Z79.82 Long term (current) use of aspirin; Z79.899 Other long term (current) drug therapy; Z79.890 Hormone replacement therapy; Z88.8 Allergy status to other drugs, medicaments and biological substances; Z87.891 Personal history of nicotine dependence; H54.7 Unspecified visual loss; Z97.4 Presence of external hearing-aid; K29.70 Gastritis, unspecified, without bleeding
CPT/HCPCS: 36415; 43282; 71046; 71260; 74019; 74177; 80053; 81001; 85025; 85610; 85730; 86140; C9113; J0330; J0690 ×2; J1100; J2250; J2370; J2405 ×2; J2704; J2710; J3010 ×2; J3490; J7030; J7120 ×3; Q9967; U0002; 00790; 51798; 80048; 96365; 96375; 99100; 99140; 99285-25; A9270-GY; C1781; J1644

== ENCOUNTER 2021-10-11 08:48 | Day surgery (SDC) | payer MEDICARE, OTHER, MEDICAID ==
[~2021-10-11 08:48] MED LIST changes: -Scopolamine 1.5 MG Transdermal Patch TRDERM PRN; +Sodium Chloride 0.9% 10 ML Syringe FLUSH SCH
[2021-10-11] MEDS ORDERED: Propofol 200 MG/20 ML SDV ONE (10:19)
[2021-10-11] MEDS ORDERED: Lidocaine 1% 4 ML ONE (10:26)
== END 2021-10-11 12:25 | disposition home or self-care (01) ==
LOC: JD.SDS 08:48
PROVIDERS: ATTEND Surgery
DX: K29.50 Unspecified chronic gastritis without bleeding (principal); K21.00 Gastro-esophageal reflux disease with esophagitis, without bleeding; K31.A0 Gastric intestinal metaplasia, unspecified; K22.89 Other specified disease of esophagus; E11.9 Type 2 diabetes mellitus without complications; E11.51 Type 2 diabetes mellitus with diabetic peripheral angiopathy without gangrene; I48.91 Unspecified atrial fibrillation; K21.9 Gastro-esophageal reflux disease without esophagitis; E03.9 Hypothyroidism, unspecified; E11.42 Type 2 diabetes mellitus with diabetic polyneuropathy; Z88.8 Allergy status to other drugs, medicaments and biological substances; Z79.82 Long term (current) use of aspirin; Z79.890 Hormone replacement therapy; Z79.899 Other long term (current) drug therapy; Z87.891 Personal history of nicotine dependence; Z87.19 Personal history of other diseases of the digestive system
CPT/HCPCS: 43239; J2704; J7120; 00731; 99100